=== PATIENT | male | born 1955 | race Caucasian/White ===

== ENCOUNTER 2020-07-18 13:38 | Outpatient (CLI) | payer MEDICARE, SELFPAY ==
--- NOTE | ~2020-07-18 | CT_ITS ---
EXAMINATION: CT lumbar spine wo [facility] EXAM DATE: 07/18/2020 14:07 INDICATION: Low back pain. TECHNIQUE: Spiral CT of the lumbar spine was performed without contrast. Axial, coronal and sagittal images were reviewed. The dose-length product (DLP) for this examination was 858.95 mGy-cm. The e xposure was tailored according to patient size (auto mA exposure control), and iterative reconstructi on (ASIR) was used as additional dose reduction technique. Correlation is made to lumbar spine MRI ex amination 06/05/2014. FINDINGS: There is 2-3 mm retrolisthesis L3 on L4. The vertebral bodies are otherwise aligned. Modera te disc disease L2-S1, mild to moderate at L1-2. Mild lumbar dextroscoliosis. Vertebral body heights relatively well-maintained. Moderate-sized Schmorl's node superior endplate of L5. Mild to moderate s igmoid diverticulosis. Paraspinal soft tissue is unremarkable. Level by level evaluation: T12-L1: Disc does not extend beyond the endplate margin. Facet arthropathy: None. Neural foraminal stenosis: No stenosis. Central canal stenosis: No stenosis. L1-L2: There is a mild diffuse disc bulge. Facet arthropathy: None. Neural foraminal stenosis: No stenosis. Central canal stenosis: No stenosis. L2-L3: There is a mild to moderate diffuse disc bulge. Facet arthropathy: Mild. Neural foraminal stenosis: Mild to moderate left. Central canal stenosis: Mild. L3-L4: There is a moderate diffuse disc bulge. Facet arthropathy: Moderate. Neural foraminal stenosis: Mild to moderate left. Central canal stenosis: Moderate. L4-L5: There is a mild to moderate diffuse disc bulge. Facet arthropathy: Moderate. Neural foraminal stenosis: Mild to moderate bilateral. Central canal stenosis: Mild to moderate. L5-S1: There is a mild diffuse disc bulge. Facet arthropathy: Moderate. Neural foraminal stenosis: Moderate right, mild to moderate left. Central canal stenosis: Mild. Spondylosis has progressed compared to 2014 MRI examination. IMPRESSION: Overall moderate lumbar spondylosis. Reviewed, dictated and finalized at location A.
--- NOTE | ~2020-07-18 | CT_ITS ---
EXAMINATION: CT cervical spine [facility] EXAM DATE: 07/18/2020 14:06 INDICATION: Chronic low back pain, cervical radiculopathy. Cervical fusion. Left-sided neck pain. TECHNIQUE: Spiral CT of the cervical spine was performed without contrast. Axial images were reviewe d. Coronal and sagittal reformatted images were also reviewed. The dose-length product (DLP) for thi s examination was 270.44 mGy-cm. The exposure was tailored according to patient size (auto mA exposu re control), and iterative reconstruction (ASIR) was used as additional dose reduction technique. Th ere is no prior study for comparison. FINDINGS: There are facet cerclage wires, posterior fusion C4-C6. C3 also has solid bone bridging of the vertebral body and facet joints. There is mild disc disease at C2-3 and C6-7, moderate at C7-T1. The vertebral bodies are aligned in the AP dimension. There are no acute fractures identified. The o dontoid process is intact. The lateral masses of C1 line up with C2. Prevertebral soft tissue and pr e-dens space are within normal limits. Level by level evaluation: C2-C3: Disc does not extend beyond the endplate margin. Uncovertebral joint arthropathy: None. Facet joint arthropathy: Mild bilateral. Neural foraminal stenosis: No stenosis. Central canal stenosis: No stenosis. C3-C4: This level is fused. Uncovertebral joint arthropathy: Fused. Facet joint arthropathy: None. Neural foraminal stenosis: No stenosis. Central canal stenosis: No stenosis. C4-C5: This level is fused. Uncovertebral joint arthropathy: Fused. Facet joint arthropathy: Fused. Neural foraminal stenosis: No stenosis. Central canal stenosis: No stenosis. C5-C6: This level is fused. Uncovertebral joint arthropathy: Fused. Facet joint arthropathy: Fused. Neural foraminal stenosis: No stenosis. Central canal stenosis: No stenosis. C6-C7: There is a mild diffuse disc bulge. Uncovertebral joint arthropathy: Mild to moderate right, mild left. Facet joint arthropathy: Mild bilateral. Neural foraminal stenosis: Mild bilateral. Central canal stenosis: No stenosis. C7-T1: There is a mild diffuse disc bulge. Uncovertebral joint arthropathy: Moderate. Facet joint arthropathy: Mild. Neural foraminal stenosis: Mild bilateral. Central canal stenosis: No stenosis. IMPRESSION: 1. Fusion C3-C6. 2. Mild to moderate cervical spondylosis. Reviewed, dictated and finalized at location A.
== END 2020-07-18 13:39 ==
LOC: MICIMG 13:39
PROVIDERS: PCP Internal Medicine; Visit Provider Internal Medicine
DX: M47.812 Spondylosis without myelopathy or radiculopathy, cervical region (principal); G89.29 Other chronic pain; M54.5 Low back pain; M47.816 Spondylosis without myelopathy or radiculopathy, lumbar region; Z98.1 Arthrodesis status
CPT/HCPCS: 72125; 72131

== ENCOUNTER 2023-03-24 10:59 | Emergency (ER) | payer MEDICARE, SELFPAY ==
[2023-03-24 11:06] VITALS: BP 138/99; PULSE 128; RESP 16; TEMP 36.7; O2SAT 96
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
== END 2023-03-24 11:38 | disposition home or self-care (01) ==
PROVIDERS: Emergency Provider Registered Nurse; PCP Family Medicine
DX: B02.9 Zoster without complications (principal); M79.7 Fibromyalgia; K21.9 Gastro-esophageal reflux disease without esophagitis; M19.90 Unspecified osteoarthritis, unspecified site; F12.90 Cannabis use, unspecified, uncomplicated
CPT/HCPCS: 99213; G0463

== ENCOUNTER 2023-06-17 09:42 | Day surgery (SDC) | payer MEDICARE, SELFPAY ==
[2023-05-31 08:01] VITALS: BMI 26.9
[2023-06-03 10:53] VITALS: BMI 26.9
--- NOTE | 2023-06-16 11:02 | WPDANESEPPF ---
Anes - Initial Pre Proc Eval Procedure: Operation Date: 06/17/23 11:00 Proposed Procedures p Screening Colonoscopy - Bunny Gregory MD Date/Time: 06/16/23 11:02 Surgeon: Bunny Gregory MD Pre Op Diagnosis: Neoplasm Screening Patient Data Age: 67 Gender: M Height: 1.78 m Weight: 85 kg Allergies Allergy/AdvReac Type Severity Reaction Status Date / Time propoxyphene [From Darvon] Allergy Mild Rash Verified 06/17/23 10:13 Home Medications Medication Instructions Recorded Confirmed Type sildenafil 100 mg tablet 100 mg PO DAILY PRN sexual 01/14/23 06/03/23 Rx activity #30 tabs diazepam 10 mg tablet 10 mg PO TID PRN anxiety #90 tabs 03/25/23 06/17/23 Rx acetaminophen 300 mg-codeine 15 mg 1 tablet PO Q4H PRN pain #20 tabs 05/06/23 06/17/23 Rx tablet carisoprodol 350 mg tablet 350 mg PO TID PRN muscle pain #90 05/21/23 06/17/23 Rx tabs sodium,potassium,mag sulfates 17.5 See Rx Instructions PO .COMPLEX 05/31/23 06/17/23 Rx gram-3.13 gram-1.6 gram oral soln #354 mL (Suprep Bowel Prep Kit) Patient hx anesthesia problems: none Family hx anesthesia problems: none Results Review: All pre-operative results and documents have been reviewed as part of the pre-operative evaluation. [facility] Past Medical History Medical History (Updated 06/16/23 @ 11:04 by Sachin Lundberg DO) Acquired fusion of cervical spine (~1982) BMI 25.0-25.9,adult Cannabis dependence Cervicalgia Chronic, continuous use of opioids Elevated PSA Fibromyalgia GERD (gastroesophageal reflux disease) Osteoarthritis Screening for colon cancer Surgical History Surgical History History of appendectomy (~1965) History of cholecystectomy (~2015) History of vasectomy (~1993) Family History Family History Sibling Patient's sister is in good health Family history of diabetes mellitus in first degree relative Diabetes mellitus Heart disease Arthritis Mother Family history of diabetes mellitus in first degree relative Diabetes mellitus Osteoporosis Hearing loss Arthritis Father Family history of malignant neoplasm Cerebrovascular accident Melanoma eye Grandparent Diabetes mellitus Other Carcinoma of colon Family history of bipolar disorder Social History Social History Smoking status: Never smoker Alcohol intake: current Substance use: current Substance use type: marijuana Living arrangements: with family Gender identity (if verbalized by the patient): Male Spiritual care concerns: No Anes - Eval Final PreProcedure Day of Procedure 06/16/23 11:02 Patient weight: overweight Heart: regular rate and rhythm Lungs: clear to auscultation Airway: Mallampati scale class II Neurological: alert and oriented Last oral intake: >/= 8 hours ASA classification: III Emergent: no Anesthetic plan: proceed Anesthesia type and monitoring: general GIVS and standard monitoring Results Review: All pre-operative results and documents have been reviewed as part of the pre-operative evaluation. Informed Consent: The patient's anesthetic plan and its attendant risks and benefits were discussed with the patient/family/POA. Questions were solicited and answers provided to the satisfaction of the patient/family/POA.
[2023-06-17 10:10] VITALS: BP 137/94; PULSE 85; RESP 20; TEMP 37; O2SAT 99
[2023-06-17] MEDS: LACTATED RINGERS 1,000 ML 150 ML IV CONT (10:22)
--- NOTE | 2023-06-17 10:32 | PM.HPGS ---
History of Present Illness History of Present Illness Consent: Risks, benefits, and alternatives have been discussed and questions answered. Patient agrees to proceed with procedure. Chief complaint: Neoplasm Screening Narrative: Jessica Chan is a 67 year old male Presents for screening colonoscopy. Patient's current weight appetite and bowel movements are normal patient denies abdominal pain. He has had no bleeding. Family history is noncontributory. Patient has a past medical history of cervical neck fracture and subsequent spine fusion. Plans ongoing pain. Review of Systems Review of Systems: Review of systems is noncontributory. [facility] Past Medical History Medical History (Updated 06/16/23 @ 11:04 by Sachin Lundberg, ) Acquired fusion of cervical spine (~1982) BMI 25.0-25.9,adult Cannabis dependence Cervicalgia Chronic, continuous use of opioids Elevated PSA Fibromyalgia GERD (gastroesophageal reflux disease) Osteoarthritis Screening for colon cancer Surgical History Surgical History History of appendectomy (~1965) History of cholecystectomy (~2015) History of vasectomy (~1993) Family History Family History Sibling Patient's sister is in good health Family history of diabetes mellitus in first degree relative Diabetes mellitus Heart disease Arthritis Mother Family history of diabetes mellitus in first degree relative Diabetes mellitus Osteoporosis Hearing loss Arthritis Father Family history of malignant neoplasm Cerebrovascular accident Melanoma eye Grandparent Diabetes mellitus Other Carcinoma of colon Family history of bipolar disorder Social History Social History Smoking status: Never smoker Alcohol intake: current Substance use: current Substance use type: marijuana Living arrangements: with family Gender identity (if verbalized by the patient): Male Spiritual care concerns: No Meds Home Medications and Allergies Home Medications Medication Instructions Recorded Confirmed Type sildenafil 100 mg tablet 100 mg PO DAILY PRN sexual 01/14/23 06/03/23 Rx activity #30 tabs diazepam 10 mg tablet 10 mg PO TID PRN anxiety #90 tabs 03/25/23 06/17/23 Rx acetaminophen 300 mg-codeine 15 mg 1 tablet PO Q4H PRN pain #20 tabs 05/06/23 06/17/23 Rx tablet carisoprodol 350 mg tablet 350 mg PO TID PRN muscle pain #90 05/21/23 06/17/23 Rx tabs sodium,potassium,mag sulfates 17.5 See Rx Instructions PO .COMPLEX 05/31/23 06/17/23 Rx gram-3.13 gram-1.6 gram oral soln #354 mL (Suprep Bowel Prep Kit) Allergies Allergy/AdvReac Type Severity Reaction Status Date / Time propoxyphene [From Darvon] Allergy Mild Rash Verified 06/17/23 10:13 Vital Signs Vital Signs - 24 hr 06/17/23 10:10 Temperature 98.6 F Pulse Rate 85 Respiratory Rate 20 Blood Pressure 137/94 H Pulse Oximetry 99 Oxygen Delivery Room Air Exam Narrative: Physical exam reveals patient to be alert. Vital signs stable. HEENT is unremarkable. Patient is a clear to auscultation and percussion. Heart is without murmur or extra sounds. A M bowel sounds are present soft nontender with no organomegaly. Digital external rectal exam normal. Assessment and Plan Assessment and plan (1) Screening for colon cancer: Code(s): Z12.11 - Encounter for screening for malignant neoplasm of colon Status: Acute Assessment and Plan: Presents today for screening colonoscopy. He appears to be at average risk for colon polyps. Further recommendations may be given after endoscopy.
[2023-06-17 11:31] VITALS: BP 143/87; PULSE 71; RESP 16; O2SAT 96
[2023-06-17 11:41] VITALS: BP 141/98; PULSE 75; RESP 16; O2SAT 97
[2023-06-17 11:51] VITALS: BP 143/101; PULSE 66; RESP 18; O2SAT 97
--- NOTE | 2023-06-17 12:36 | WPDANESPN ---
Anes - Prog Note Post-Op Date/Time: 06/17/23 12:36 Cardiovascular status: normal Respiratory status: normal Airway patency: baseline Mental status: baseline Post-Op hydration status: normal Vital Signs: Last Vital Signs Temp 37.0 C 06/17/23 10:10 Pulse 66 06/17/23 11:51 Resp 18 06/17/23 11:51 BP 143/101 H 06/17/23 11:51 Pulse Ox 97 06/17/23 11:51 O2 Del Method Room Air 06/17/23 11:51 Pain Score (VAS): 0 I/O: Intake & Output 06/16/23 06/17/23 06/17/23 23:59 07:59 15:59 Intake Total 800 Balance 800 Post-procedural complaints: none Patient Feedback: Patient satisfied with anesthetic care. Other Findings: Patient vital signs back to baseline. Patient denies nausea and vomiting. Patient's pain under control. Patient OK for discharge.
== END 2023-06-17 12:05 | disposition home or self-care (01) ==
PROVIDERS: PCP Family Medicine; Visit Provider Internal Medicine Gastroenterology
PROC: 0DJD8ZZ Inspection of Lower Intestinal Tract, Via Natural or Artificial Opening Endoscopic (ICD-10-PCS; CPT 45378; principal; 2023-06-17 11:00)
DX: Z12.11 Encounter for screening for malignant neoplasm of colon (principal); K57.30 Diverticulosis of large intestine without perforation or abscess without bleeding
CPT/HCPCS: 45378

== ENCOUNTER 2024-10-17 08:20 | Outpatient (CLI) | payer MEDICARE, SELFPAY ==
--- NOTE | 2024-10-17 08:00 | ECG_ITS ---
Test Date: 2024-10-17 08:55:28 Measurements Intervals [place] Rate: 90 P: 65 CT: 131 QRS: 56 QRSD: 84 T: 52 QT: 338 QTc: 414 Interpretive Statements SINUS RHYTHM No previous ECG available for comparison Electronically Signed On 10-17-2024 14:56:04 [employer] by Natalie Zamarripa M.D.
== END 2024-10-17 08:21 | disposition home or self-care (01) ==
PROVIDERS: PCP Family Medicine; Visit Provider Surgery
DX: Z01.818 Encounter for other preprocedural examination (principal); K40.90 Unilateral inguinal hernia, without obstruction or gangrene, not specified as recurrent; E78.5 Hyperlipidemia, unspecified; R00.0 Tachycardia, unspecified
CPT/HCPCS: 36415; 86850; 86900; 86901; 93005

== ENCOUNTER 2024-10-24 00:27 | Day surgery (SDC) | payer MEDICARE, SELFPAY ==
[2024-10-11 15:48] VITALS: BMI 22.4
--- NOTE | 2024-10-11 16:02 | PC.NURSE ---
Report to the Outpatient Waiting Room, entrance under the green pavilion located off [facility], at time __06:00am on date 10/24/24 . Planned Procedure Time: __07:30am .? Time changes happen often and if your time is changed the preop area will call you the afternoon before. - You and your visitor will be asked to self-screen and do not enter if you have any COVID symptoms. Please call surgeon if you need to reschedule. - A mask is optional within the hospital at this time. Patients may have clear liquids (water, carbonated beverages, clear teas, apple juice) until 3 hours prior to surgery with a maximum of 20 ounces. - No food from midnight until time of surgery and no smoking. This includes no chewing gum, candy or mints.(04:30am) - Take only the following medications with a SIP of water on the morning of surgery: Tylenol w Codeine, Carisoprodole, and Diazepam as needed DO NOT STOP ANY OF YOUR OTHER PRESCRIPTION MEDICATIONS PRIOR TO SURGERY EXCEPT THE FOLLOWING Medications to discontinue per physician None Date to take last dose Please no make-up, nail estonian, hairspray, perfume, deodorant, or body powder the day of surgery.? No jewelry (including any body piercings) or valuables the day of surgery, leave them at home.? Please take a shower or bath the night before, or the morning of, surgery with an antibacterial soap.? Wear comfortable, loose fitting clothing.? - Jewelry must be removed prior to entering the operating room.? Rings and piercings that are not removed may be cut off. - The hospital will not accept responsibility for valuables.? - Please leave all valuables, including medications, at home the day of surgery. If you are going home after surgery, a licensed pedicab driver must drive you home.? - NO public transportation without another adult if you receive anesthesia. - We recommend that an adult stay with you for 24 hours following discharge. - We also recommend that you do not drive, make important decision, drink alcoholic beverages, or take any drugs that were not prescribed by your health care provider for at least 24 hours after your discharge time. Follow any additional instructions given to you from your surgeon. Telephone instructions given to _Patient and asked if any additional questions and then verbalized understanding. Patient advised to call surgeon office or pre surgery nurse liaison [phone] if any additional questions.
[2024-10-24] VITALS (10 sets, daily range): BP systolic 99–158; BP diastolic 63–98; PULSE 62–98; RESP 10–18; TEMP 36.1–36.2; O2SAT 99–100
[2024-10-24] MEDS: KETOROLAC 15 MG/ML VIAL (*BKC) IV PUSH (07:00)
[2024-10-24] MEDS: LACTATED RINGERS 1,000 ML 30 ML IV CONT ×2 (07:00→08:50)
--- NOTE | 2024-10-24 07:13 | WPDHPUPDATE1 ---
History and Physical Update Update Date/Time: 10/24/24 07:13 History and Physical has been reviewed, including an updated exam of the patient. There are NO changes in the patient's condition. Risks, benefits, and alternatives have been discussed and questions answered. Patient agrees to proceed with procedure.
--- NOTE | 2024-10-24 07:13 | PM.IMHP ---
H&P: HPI History of Present Illness Date/Time: 10/24/24 07:13 Chief Complaint: right inguinal hernia Narrative: 69 yo man presents for right inguinal hernia repair. He reports no changes since last seen in office. Review of Systems Review of Systems: All systems reviewed & are unremarkable except as noted in HPI and below Constitutional: Constitutional: Denies chills, Denies fever(s), Denies headache(s) and Denies weight loss Eyes: Eyes: Denies change in vision ENT: Denies dizziness, Denies headache(s), Denies neck mass and Denies throat swelling Cardiovascular: Cardiovascular: Denies chest pain, Denies lightheadedness and Denies dyspnea Respiratory: Respiratory: Denies cough, Denies dyspnea and Denies wheezing Gastrointestinal: Gastrointestinal: Denies abdominal pain, Denies change in bowel habits, Denies nausea and Denies vomiting Genitourinary: Genitourinary: Denies hematuria and Denies dysuria Musculoskeletal: Musculoskeletal: Reports as per HPI Integumentary/Breasts: Skin/Breast: Reports as per HPI Neurologic: Denies dizziness and Denies headache(s) Allergic/Immunologic: Allergic/Immunologic: Denies throat swelling and Denies wheezing [facility] Past Medical History Medical History (Updated 10/24/24 @ 07:15 by Vasu Underwood DO) History of radiation therapy prostate 2023 Chronic, continuous use of opioids Screening for colon cancer Acquired fusion of cervical spine (~1982) Osteoarthritis GERD (gastroesophageal reflux disease) Cervicalgia BMI 25.0-25.9,adult Cannabis dependence Elevated PSA Fibromyalgia Surgical History Surgical History History of vasectomy (~1993) History of cholecystectomy (~2015) History of appendectomy (~1965) Family History Family History Sibling Patient's sister is in good health Family history of diabetes mellitus in first degree relative Diabetes mellitus Heart disease Arthritis Mother Family history of diabetes mellitus in first degree relative Diabetes mellitus Osteoporosis Hearing loss Arthritis Father Family history of malignant neoplasm Cerebrovascular accident Melanoma eye Grandparent Diabetes mellitus Other Carcinoma of colon Family history of bipolar disorder Social History Social History Smoking status: Never smoker Alcohol intake: never Substance use: current Substance use type: marijuana Other substance usage details: smoke and edibles ,gummies Living arrangements: alone Additional living arrangements comments: Gender identity (if verbalized by the patient): Male Spiritual care concerns: No Meds Home Medications and Allergies Home Medications ?Medication ?Instructions ?Recorded ?Confirmed ?Type carisoprodol 350 mg tablet 350 mg PO TID PRN muscle pain #90 06/06/24 10/11/24 Rx tabs imipramine HCl 10 mg tablet 10 mg PO QHS #90 tabs 08/16/24 10/11/24 Rx diazepam 10 mg tablet 10 mg PO TID PRN muscle spasm #90 09/04/24 10/11/24 Rx tabs acetaminophen 300 mg-codeine 15 mg 1 tablet PO Q4H PRN pain 10/11/24 10/11/24 History tablet oxybutynin chloride 10 mg 10 mg PO BID 10/11/24 10/11/24 History tablet,extended release 24 hr relugolix 120 mg tablet (Orgovyx) 120 mg PO DAILY 10/11/24 10/11/24 History Allergies Allergy/AdvReac Type Severity Reaction Status Date / Time propoxyphene (From Darvon) Allergy Mild Rash Verified 10/11/24 15:45 propofol AdvReac Severe Headache Verified 10/11/24 15:45 morphine AdvReac Mild Nausea Verified 10/11/24 15:45 Exam Const: General: no acute distress and alert Orientation/consciousness: patient oriented x3 HENMT: Head: normocephalic and atraumatic Ears: hearing grossly normal bilaterally Face/Nose/Sinus: Normal nares present Mouth: Yes Normal oral and palatal mucosa present Eyes: Periorbital: periorbital findings normal Sclera: sclerae normal EOM: EOMs intact bilaterally Neck: Neck: normal visual inspection, no lymphadenopathy and trachea midline Chest: Chest palpation & inspection: normal inspection of the chest Resp: Effort & Inspection: normal respiratory effort Auscultation: clear to auscultation bilaterally Cardio: Jugular venous distension: no JVD Rate: regular rate Rhythm: regular rhythm Heart sounds: S1 normal heart sound present and S2 normal heart sound present Peripheral pulses: Peripheral pulses 2+ throughout GI: Inspection: normal to inspection GI Palp: Yes Soft to palpation, No Tenderness to palpation present (GI), No Guarding due to palpation present (GI) and No Rebound tenderness present Percussion: Yes normal to percussion Auscultation: normal bowel sounds : General: Yes no CVA tenderness Scrotum: inguinal hernia on the right Back/Spine/Pelvis: Back: no CVA tenderness Neuro: General: patient oriented x3, no focal motor deficits and CN's II-XI intact bilaterally Cognition (Neuro): normal cognition Speech: normal speech Motor exam (neuro): 5/5 motor strength present throughout Extrem: General: capillary refill normal and no clubbing, cyanosis or edema Assessment and Plan Assessment and plan (1) Right inguinal hernia: Code(s): K40.90 - Unilateral inguinal hernia, without obstruction or gangrene, not specified as recurrent Status: Acute Assessment and Plan: I have recommended laparoscopic right inguinal hernia repair with mesh, da Presley assisted. I have discussed the procedure, risks, benefits, and alternatives with the patient. All questions answered. No changes since last seen in office.
--- NOTE | 2024-10-24 07:23 | WPDANESEPPF ---
Anes - Initial Pre Proc Eval Procedure: Operation Date: 10/24/24 07:30 Proposed Procedures p Laparoscopic Right Inguinal Hernia Repair with Mesh, Davinci Assisted - Vasu Underwood DO Date/Time: 10/24/24 07:23 Surgeon: Vasu Underwood DO Pre Op Diagnosis: Right Inguinal Hernia Patient Data Age: 69 Gender: M Height: 1.83 m Weight: 75 kg Last Vital Signs Temp 97.1 F L 10/24/24 07:00 Pulse 98 10/24/24 07:00 Resp 14 10/24/24 07:00 BP 99/63 L 10/24/24 07:00 Pulse Ox 100 10/24/24 07:00 O2 Del Method Room Air 10/24/24 07:00 Allergies Allergy/AdvReac Type Severity Reaction Status Date / Time propoxyphene (From Darvon) Allergy Mild Rash Verified 10/11/24 15:45 propofol AdvReac Severe Headache Verified 10/11/24 15:45 morphine AdvReac Mild Nausea Verified 10/11/24 15:45 Home Medications ?Medication ?Instructions ?Recorded ?Confirmed ?Type carisoprodol 350 mg tablet 350 mg PO TID PRN muscle pain #90 06/06/24 10/11/24 Rx tabs imipramine HCl 10 mg tablet 10 mg PO QHS #90 tabs 08/16/24 10/11/24 Rx diazepam 10 mg tablet 10 mg PO TID PRN muscle spasm #90 09/04/24 10/11/24 Rx tabs acetaminophen 300 mg-codeine 15 mg 1 tablet PO Q4H PRN pain 10/11/24 10/11/24 History tablet oxybutynin chloride 10 mg 10 mg PO BID 10/11/24 10/11/24 History tablet,extended release 24 hr relugolix 120 mg tablet (Orgovyx) 120 mg PO DAILY 10/11/24 10/11/24 History Patient hx anesthesia problems: none Family hx anesthesia problems: none Results Review: All pre-operative results and documents have been reviewed as part of the pre-operative evaluation. [facility] Past Medical History Medical History (Updated 10/24/24 @ 07:15 by Vasu Underwood DO) History of radiation therapy prostate 2023 Chronic, continuous use of opioids Screening for colon cancer Acquired fusion of cervical spine (~1982) Osteoarthritis GERD (gastroesophageal reflux disease) Cervicalgia BMI 25.0-25.9,adult Cannabis dependence Elevated PSA Fibromyalgia Surgical History Surgical History History of vasectomy (~1993) History of cholecystectomy (~2015) History of appendectomy (~1965) Family History Family History Sibling Patient's sister is in good health Family history of diabetes mellitus in first degree relative Diabetes mellitus Heart disease Arthritis Mother Family history of diabetes mellitus in first degree relative Diabetes mellitus Osteoporosis Hearing loss Arthritis Father Family history of malignant neoplasm Cerebrovascular accident Melanoma eye Grandparent Diabetes mellitus Other Carcinoma of colon Family history of bipolar disorder Social History Social History Smoking status: Never smoker Alcohol intake: never Substance use: current Substance use type: marijuana Other substance usage details: smoke and edibles ,gummies Living arrangements: alone Additional living arrangements comments: Gender identity (if verbalized by the patient): Male Spiritual care concerns: No Anes - Eval Final PreProcedure Day of Procedure 10/24/24 07:23 Patient weight: normal Heart: regular rate and rhythm Lungs: clear to auscultation Airway: Mallampati scale class II Neurological: alert and oriented Last oral intake: >/= 8 hours ASA classification: III Emergent: no Anesthetic plan: proceed Anesthesia type and monitoring: general ETT and standard monitoring Results Review: All pre-operative results and documents have been reviewed as part of the pre-operative evaluation. Informed Consent: The patient's anesthetic plan and its attendant risks and benefits were discussed with the patient/family/POA. Questions were solicited and answers provided to the satisfaction of the patient/family/POA.
[2024-10-24] MEDS: ceFAZolin 2 GM/D5W 50 ML 2 GM/50 ML BAG IVPB (07:32)
[2024-10-24] MEDS: BUPIVACAINE/EPINEPHRINE 0.5% 50 ML VIAL 30 ML INFILTRATE (08:14)
--- NOTE | 2024-10-24 08:42 | W.PM.PROC2 ---
Procedure Note - Detailed Date of Procedure 10/24/24 Pre-op Diagnosis Right Inguinal Hernia Post-op Diagnosis Same (Direct [facility]) Procedure Performed Laparoscopic right inguinal hernia repair with mesh, da Presley assisted Surgeon Vasu Underwood DO Anesthesia General and Local (0.5% bupivacaine with epinephrine) Indications This is a 69-year-old man who presented with right groin pain for the past several months. He was currently undergoing radiation therapy for prostate cancer at the time when the pain started. He was found to have a reducible right inguinal hernia on exam. The patient was able to complete his radiation treatments and then further discussions were made with the patient about treatment options. Decision was made to proceed with robotic assisted laparoscopic right inguinal hernia repair with mesh. Findings Robotic assisted laparoscopic right inguinal hernia repair with mesh was performed. The patient was found to have a medium-sized direct right inguinal hernia. There was no evidence of left inguinal hernia. The patient did have some scarring from his previous open appendectomy in the right lower quadrant. A robotic transabdominal preperitoneal approach was utilized for repair. Once a wide enough preperitoneal pocket was created, I then placed a large right 3DMax mid mesh overlying the entire right myopectineal orifice. Description of Procedure Procedure as well as risks, benefits, and alternatives were discussed with the patient. Written consent was obtained and placed in chart prior to procedure. Patient was brought back to surgical suite. He was placed supine on operating table. Time-out was done to confirm patient and procedure. He was then intubated by Anesthesia Department. His abdomen was prepped and draped in sterile fashion using chlorhexidine prep. 0.5% bupivacaine with epinephrine was infiltrated at each location for incision. A 12 millimeter transverse incision was made just superior to the umbilicus using a 15 blade scalpel. Blunt dissection was carried out down to the linea alba. A vertical incision was made at the linea alba using a 15 blade scalpel. The peritoneum was then bluntly entered. A 12 millimeter trocar was inserted and carbon dioxide insufflation was used to create a pneumoperitoneum. A camera was inserted and the abdominal cavity was inspected. The patient was placed in slight Trendelenburg position. An 8 millimeter incision was made on the right lateral abdomen and an 8 millimeter trocar was inserted under direct visualization. Another 8 millimeter incision was made in the left lateral abdomen and an 8 millimeter trocar was inserted under direct visualization. The robotic arms were brought up to the patient's bedside and secured to the ports. The camera and instruments were inserted. I then moved over to the robotic console and took control of the camera and instruments. After careful inspection of the abdominal cavity, I began scoring the peritoneum along the right lower quadrant using scissors with electrocautery. The preperitoneal plane was entered and this was carefully dissected caudally along the inferior epigastric vessels. Careful dissection with scissors with electrocautery and blunt dissection was used to continue this dissection. I dissected far enough laterally to allow for mesh placement, and also dissected medially to identify the pubic arch and Yoav's ligament. The hernia sac was identified and carefully dissected posteriorly. The cord contents were also identified and the peritoneum was carefully dissected far enough posteriorly to allow for mesh placement. Once an adequate pocket was created, I then placed the mesh within the preperitoneal pocket and carefully unfolded it. The mesh was centered on the hernia defect with adequate overlap circumferentially. The inferior edge of the mesh was inspected to ensure that it was far enough away from the peritoneal edge. The mesh appeared in proper position overlying the entire myopectineal orifice. The mesh was secured using 3-0 Vicryl simple interrupted sutures in Yoav's ligament, the superior medial edge, and superior lateral edge of the mesh. The peritoneum was then closed over the mesh using a 3-0 V-lock running absorbable suture. The robotic instruments were removed. The robotic arms were disengaged from the ports and moved away from the bedside. The patient was flattened out in bed, the ports were removed under direct visualization, and the pneumoperitoneum was released. The fascia of the umbilical incision was approximated using an 0 Vicryl [id number] suture. The skin of the incisions was approximated using 4-0 Monocryl subcuticular suture, and Exofin glue was applied on top. The patient was awakened from anesthesia, extubated, and transferred to recovery. Implants Large right 3DMax mid mesh Estimated Blood Loss 5 Complications No immediate complications Condition Stable Disposition Same day [facility] Billing Surgery - Charge Forward: Surgery Billing
[2024-10-24] MEDS: oxyCODONE HCL (*CRX) 5 MG TAB IR PO (09:50)
[2024-10-24] MEDS: fentaNYL CITRATE INJ (*CRX) 100 MCG/2 ML VIAL 25 MCG IV PUSH ×4 (10:53→11:01)
== END 2024-10-24 11:28 | disposition home or self-care (01) ==
PROVIDERS: PCP Family Medicine; Visit Provider Surgery
PROC: 8E0Y4CZ Robotic Assisted Procedure of Lower Extremity, Percutaneous Endoscopic Approach (ICD-10-PCS; CPT 49650; principal; 2024-10-24 07:30)
DX: K40.90 Unilateral inguinal hernia, without obstruction or gangrene, not specified as recurrent (principal); K21.9 Gastro-esophageal reflux disease without esophagitis; F12.90 Cannabis use, unspecified, uncomplicated; M19.90 Unspecified osteoarthritis, unspecified site; Z79.891 Long term (current) use of opiate analgesic; Z98.890 Other specified postprocedural states; Z90.49 Acquired absence of other specified parts of digestive tract; Z98.1 Arthrodesis status; Z92.3 Personal history of irradiation; Z80.0 Family history of malignant neoplasm of digestive organs; Z80.8 Family history of malignant neoplasm of other organs or systems; Z82.49 Family history of ischemic heart disease and other diseases of the circulatory system
CPT/HCPCS: 49650; S2900; A9270; C1781; J0690; J1100; J1885; J2003; J2250; J2405; J2704; J3010; J7030; J7120

== ENCOUNTER 2025-01-15 11:56 | Outpatient (CLI) | payer MEDICARE, SELFPAY ==
--- NOTE | ~2025-01-15 | CT_ITS ---
EXAMINATION: CT pelvis wo con DATE: 01/15/2025 12:15 INDICATION: Right testicular pain. TECHNIQUE: Computed tomography (CT) of the pelvis was performed without intravenous contrast. Automat ed exposure control and iterative reconstruction technique were employed. The dose-length product was 518.05 mGy-cm. COMPARISON: CT abdomen and pelvis 09/13/2017 FINDINGS: There are no dilated loops of bowel. There is diverticulosis of the colon without evidence of diverticulitis. There are brachytherapy seeds in the prostate. There are changes of right inguinal hernia repair. There are no pathologically enlarged lymph nodes. There is no ascites. There is sever e lumbar spondylosis. IMPRESSION: 1. No specific etiology for the patient's symptoms. Reviewed, dictated and finalized at location B.
== END 2025-01-15 11:57 | disposition home or self-care (01) ==
LOC: MICIMG 11:57
PROVIDERS: PCP Family Medicine; Visit Provider Surgery
DX: N50.811 Right testicular pain (principal); N50.812 Left testicular pain
CPT/HCPCS: 72192

== ENCOUNTER 2025-07-25 12:20 | Outpatient (CLI) | payer MEDICARE, SELFPAY ==
--- OUTSIDE RECORDS SUMMARY | 2013-01-03 03:30 | XMS_ITS | Continuity of Care Document ---
Author Organization [facility] Address [address] [place] [address] [place] [address] Phone Care Team Providers Care Pulp Grinder And Blender Name Role Phone Dennis Ivan MD Unavailable [...] Diagnoses Date Provider Providers Copied on Encounter [facility], [address] [place] [address] [address], [place], [place], [address], tel:[phone] SEC Rich AHMADI Professional No Information 3 Moncho Collins. [address], [address], [place], [place], [address], . tel:[phone] Referring Provider: Dennis Camejo, [address], [place], [address] . tel:[phone] [facility], [address], [place], [place], [address], tel:[phone] SEC [place] Professional No Information 3 Moncho Collins. [address], [address] [place], [address], [place]. tel:[phone] Family History Family Member Type Diagnosis Age At Onset Mother Problem (finding) diabetes melli tus in first degree relative Payers Payer name Insurance type Covered constitution party ID Authorkady celaya(s) AARP Medicare Complete CI [id number] Social History Type Description Quantity Date Captured [...]
--- OUTSIDE RECORDS SUMMARY | 2013-05-02 09:54 | XMS_ITS | Continuity of Care Document ---
Author Organization [facility] Address [address] [place] [address] Phone Care Team Providers Care Chief Deputy Coroner Name Role Phone Iker MORLEY, Andre Unavailable Unavailable Allergies, Adverse Reactions, Alerts Substance Reaction Status Criticality PROPOXYPHENE HCL Active No Informat ion Medications Medication Instructions Dosage Effective Dates (start - stop) Status Comments Flonase 50 mcg/actuation Nasal [place] inhale 2 spray (100MCG) by intranasal route every day in each nostril 100 MCG - Active Aciphex 20 mg tablet,delayed release take 1 tablet (20MG) by oral route 2 times every day swallowing whole. Do not crush, chew and/or divide. 20 MG - Active Procedures Procedure Date OFFICE/OUTPATIENT VISIT, EST OFFICE/OUTPATIENT VISIT, EST OFFICE/OUTPATIENT VISIT, [facility] Advance Directives Directive Yes / No Effective Date File Name No Information Encounters Encounter Description Practice Location Reason(s) For Visit Diagnoses Date Provider Providers Copied on Encounter [facility] [place], [address] [place], [place], [address], tel:[phone] [facility] [place] No Information 3 Iker Powell. [address] [place], [address] , [place]. tel:[phone] Referring Provider: Andre Dong, [address], [place], [place], [address]. tel:[phone] OFFICE/OUTPA TIENT VISIT, EST [facility] [place], [address] [place], [address], [place] tel:[phone] [facility] [place] tinnitus (chief complaint) Neck pain (chief complaint) nevus (chief complaint) Dietary surveillance and counselingNevus, non-neoplasticTinni tus, unspecifiedCervical wood 3 Iker Powell. [address], [place], [place], [address] , [place]. [phone] Referring Provider: Michael [address], [place], [place], [address]. tel:[phone] OFFICE/OUTPA TIENT VISIT, [facility], [address], [place], [place], [address], [place] tel:[phone] [facility] [place] tinnitus (chief complaint) HLP (chief complaint) vitamin D (chief complaint) Other and unspecified hyperlipidemiaDieta ry surveillance and counselingTinnitus, unspecifiedUnspecif ied vitamin d deficiencyNevus, non-neoplastic 3 Iker Powell. [address], [place], [place], [address] , [place]. [phone] Referring Provider: Michael [address], [place], [place], [address]. tel:[phone] OFFICE/OUTPA TIENT VISIT, [facility], [address], [place], [place], [address], [place] tel:[phone] [facility] [place] neck pain (chief complaint) GERD (chief complaint) bells palsy (chief complaint) Dietary surveillance and counselingBell's palsyGERDCHRONIC PAIN NEC 3 Iker Powell. [address], [place], [place], [address] , [place]. tel:[phone] Referring Provider: Michael [address], [place], [place], [address]. tel:[phone] Family History Family Member Type Diagnosis Age At Onset Mother Problem (finding) Diabetes mellitus Brother Problem (finding) Diabetes mellitus Father Problem (finding) Stroke Father Problem (finding) Cancer - esophageal CA Payers Payer name Insurance type Covered alliance party ID Authoriza tion(s) No Information Social History Type Description Quantity Date Captured Comments Sex Male Smoking Status No Information Chief Complaint And Reason For Visit No Information Plan Of Treatment Date Type Action Status Referral Ordered: Referral: Plastic Surg. Evaluate and treat. ordered Referral Ordered: HEARING TEST, PURE TONE, AIR ordered History Of Present Illness Encounter Date Complaint History Of Prese nt Illness No Information Instructions Date Instruction Additional Infor birdie Dietary counseling Related to Di etary surveillance counseling Decrease caloric intake Related to Dietary surveillance counseling Dietary counseling Related to Di etary surveillance counseling Decrease caloric intake Related to Dietary surveillance counseling Decrease caloric intake Related to Dietary surveillance counseling Dietary counseling Related to Di etary surveillance counseling Assessments Type Assessment Date No Information
--- NOTE | ~2025-07-25 | XR_ITS ---
Abdominal radiograph(s) INDICATION: Hematuria COMPARISON: CT abdomen and pelvis 09/13/2017 TECHNIQUE: Supine AP abdomen FINDINGS: Scattered colonic gas and stool. Small bowel loops not well seen. Cholecystectomy clips. Pelvic phleboliths. A few tiny metallic foreign bodies in pelvis, likely within prostate. No nephroureteral calculi identified. No acute bony abnormality. IMPRESSION: 1. No nephroureteral calculi identified. Reviewed, dictated and finalized at location R.
--- OUTSIDE RECORDS SUMMARY | 2025-07-25 12:33 | XMS_ITS | Clinical Summary ---
Author Organization [facility] Address [address] [place] [address] Care Team Providers Care Armor Senior Sergeant Name Role Phone Stephan Subramanian MD Primary Care Provider [phone] Source Comments [facility],non-owned Affiliates and Associated Physician Practices is amultiple site organization consisting of ambulatory clinics and hospital sitesin [place], [place], [place] and [place]. This disclosure is being madepursuant to the Care Everywhere program and may not contain all information available regarding this patient. Last updated 18.[facility] Allergies Active Allergy Reactions Criticality Noted Date Comments Propoxyphene Rash Medium 04/07/2017 Medications * Be aware that medications may not be up to date on this document. Alwaysverify current medications with the patient. Dronabinol (MEDICAL MARIJUANA) Active MORPHINE SULFATE ER PO Active Hydrocodone-Alexis taminophen (VICODIN PO) Active DIAZEPAM PO Active diphenhydramine 12.5mg/ml, 30ml,; visc lidocaine 2%, 30ml,; maalox, 30ml, (MIRACLE MOUTHWASH) SUSPIndications :Acute pharyngitis, unspecified etiology 1:1:1 solution of viscous lidocaine 2%, Maalox, diphenhydramine 12.5mg/5ml elixir 90 mL 04/07/20 17 Active Social History Tobacco Use Types Packs/Day Years Used Date Smoking Tobacco: Never Sex and Gender Information Value Date Recorded Sex Assigned at Not on file Legal Sex Male 6:41 PM CDT Gender Identity Not on file Sexual Orientation Not on file Last Filed Vital Signs Vital Sign Reading Time Taken Comments Blood Pressure 118/72 04/07/2017 6:46 PM CDT Pulse 72 04/07/2017 6:46 PM CDT Temperature 37.1 C (98.7 F) 04/07/2017 6:46 PM CDT Respiratory Rate 16 04/07/2017 6:46 PM CDT Oxygen Saturation 97% 04/07/2017 6:46 PM CDT Inhaled Oxygen Concentration - - Weight 98 kg (216 lb) 04/07/2017 6:46 PM CDT Height 177.8 cm (5' 10) 04/07/2017 6:46 PM CDT Body Mass Index 30.99 04/07/2017 6:46 PM CDT Plan of Treatment Health Maintenance Due Date Last Done Comments COLOGUARD (AGES 45-75) - COL ON CA SCREENING 1956 COLON MONITORING 1956 COLONOSCOPY - COLON CA SCREENING 1956 CT COLONOGRAPHY - COLON CA SCREENING 1956 Colorectal Cancer Screening 1956 FIT - COLON CA SCREENING 1956 FLEX SIG - COLON CA SCREENING 1956 LIPID TESTING 1956 HEPATITIS C SCREENING 06/25/1974 DTAP/TDAP/TD VACCINES (1 - Tdap) 1975 PNEUMOCOCCAL VACCINE 50+ (1 of 1 - PCV) 2006 ZOSTER VACCINE (1 of 2) 2006 DEPRESSION SCREENING 11/08/2024 COVID-19 VACCINE (1 - 2023-2 5 season) 2025 INFLUENZA VACCINE (#1) 2025 Respiratory Syncytial Virus (RSV) Vaccine Pt: or over 60 yrs (1 - 1-dose 75+ series) 2031 HEPATITIS B VACCINE Aged Out No longe r eligible based on patient's age to complete this topic HIB VACCINE Aged Out No longer eligi ble based on patient's age to complete this topic HPV VACCINE Aged Out No longer eligi ble based on patient's age to complete this topic MENINGOCOCCAL (Group B) VACC INE SHARED DECISION-MAKING Aged Out No longer eligibl e based on patient's age to complete this topic MENINGOCOCCAL GROUPS A/C/Y/W VACCINE Aged Out No longer eligible b ased on patient's age to complete this topic Insurance [facility] [place] [address] Care Teams Armor Senior Sergeant Relationship Specialty Start Date End Date Stephan Subramanian MD [address] [facility] [address] [place] [address] PCP - General Internal Medicine 04/07/17
== END 2025-07-25 12:21 | disposition home or self-care (01) ==
PROVIDERS: PCP Family Medicine; Visit Provider Urology
DX: R31.0 Gross hematuria (principal)
CPT/HCPCS: 74018

== ENCOUNTER 2025-09-07 14:38 | Outpatient (CLI) | payer MEDICARE, SELFPAY ==
--- NOTE | ~2025-09-07 | XR_ITS ---
EXAMINATION: XR knee LT 3V, 09/07/2025 15:00 CDT HISTORY: Pain in left knee x 1 year COMPARISON: No comparisons available. Findings: No acute fracture or malalignment. No significant degenerative changes. Soft tissues unremarkable. Impression: No acute fracture or malalignment. Reviewed, dictated and finalized at location P. Impression: No acute fracture or malalignment.
== END 2025-09-07 14:39 | disposition home or self-care (01) ==
LOC: GOSHIMG 14:40
PROVIDERS: PCP Family Medicine; Visit Provider Nurse Practitioner Family
DX: M25.562 Pain in left knee (principal)
CPT/HCPCS: 73562

== ENCOUNTER 2025-09-18 09:40 | Observation (INO) | payer MEDICARE, SELFPAY ==
--- OUTSIDE RECORDS SUMMARY | 2013-01-03 02:30 | XMS_ITS | Continuity of Care Document ---
Author Organization [facility] Address [address] [place] [address] [place] [address] Phone Care Team Providers Care Application Infrastructure Engineer Name Role Phone Dennis Ivan MD Unavailable Unavailable Allergies, Adverse Reactions, Alerts Substance Reaction Status Criticality PROPOXYPHENE HCL Active No Informat ion Medications Medication Instructions Dosage Effective Dates (start - stop) Status Comments Oxycodone 20 mg Tab - Active Hydrocodone-Acetaminophen 10 mg-325 mg Tab - Active Diclofenac 75 mg Tab, Delayed Release - Active Cyclobenzaprine 10 mg Tab - Acti ve Diazepam 10 mg Tab - Active Gabapentin 600 mg Tab - Active Aciphex 20 mg Tab - Active Ranitidine 150 mg Cap - Active Procedures Procedure Date Eye Exam, New Patient Advance Directives Directive Yes / No Effective Date File Name Resuscitation Not Answered N/A N/A Life Support Not Answered N/A N/A Intubation Not Answered N/A N/A Antibiotics Not Answered N/A N/A IV Fluid Support Not Answered N/A N/A Tube Feed Not Answered N/A N/A Other Directive N/A N/A WARNING:The information contained in this section is historical and is provided for information only and does not constitute a legal document or any assurance that the information is still accurate. Please verify the information with the long of the legal document before using it for clinical purposes. Encounters Encounter Description Practice Location Reason(s) For Visit Diagnoses Date Provider Providers Copied on Encounter [facility], [address] [place] [address] [address], [place], [place], [id number], tel:[phone] SEC Rich AHMADI Professional No Information 3 Moncho Collins. [address], [address], [place], [place], [address], . tel:[phone] Referring Provider: Dennis Camejo, [address], [place], [address] . tel:[phone] [facility], [address], [place], [place], [address], tel:[phone] SEC [place] Professional No Information 3 Moncho Collins. [address], [address] [place], [place], [address], [place]. tel:[phone] Family History Family Member Type Diagnosis Age At Onset Mother Problem (finding) diabetes melli tus in first degree relative Payers Payer name Insurance type Covered republican ID Authorkady celaya(s) AARP Medicare Complete CI [id number] Social History Type Description Quantity Date Captured Comments Alcohol Use Details No Caffeine Use Details 1 cup per day Tobacco Use Status No Information Smoking Status No Information Sex Male Chief Complaint And Reason For Visit No Information Reason For Referral Reason For Referral No Information History Of Present Illness Encounter Date Complaint History Of Prese nt Illness No Information Functional Status Date Functional Assessmen t No Information Instructions Date Instruction Additional Infor mation hyperope/presbyope - glasses MGD - P Assessments Type Assessment Date No Information Patient Care Teams Name Effective Dates (start - stop) Status Members No Information
--- OUTSIDE RECORDS SUMMARY | 2013-01-03 02:30 | XMS_ITS | Continuity of Care Document ---
Author Organization [facility] Address [address] [place] [address] [place] [address] Phone Care Team Providers Care Garnett Feeder Name Role Phone Dennis Ivan MD Unavailable [...] Diagnoses Date Provider Providers Copied on Encounter [facility], [address] [place] [address] [address], [place], [place], [address], tel:[phone] SEC Rich AHMADI Professional No Information 3 Moncho Collins. [address], [address], [place], [place], [address], . tel:[phone] Referring Provider: Dennis Camejo, [address], [place], [address] . tel:[phone] [facility], [address], [place], [place], [address], tel:[phone] SEC [place] Professional No Information 3 Moncho Collins. [address], [place], [address], [place]. tel:[phone] Family History Family Member Type Diagnosis Age At Onset Mother Problem (finding) diabetes melli tus in first degree relative Payers Payer name Insurance type Covered green party ID Authorkady celaya(s) AARP Medicare Complete CI [id number] Social History Type Description Quantity Date Captured [...]
[2025-09-18] VITALS (8 sets, daily range): BP systolic 138–155; BP diastolic 73–104; PULSE 74–95; RESP 16–22; TEMP 36.4–36.6; O2SAT 95–100; BMI 20.9
--- NOTE | ~2025-09-18 | CT_ITS ---
CT HEAD NON-CONTRAST Clinical History: acute cognitive decline Comparison: None Technique: Unenhanced axial images skull base to vertex Coronal, sagittal reformats CT images acquired with automatic exposure control for dose reduction DLP: 605.33 mGy-cm Findings: Mild age-related atrophy and chronic white matter microvascular ischemic changes. Sulci, ventricles: Unremarkable. No intracerebral hemorrhage. No evidence acute territorial infarct. No mass effect, midline shift. Bony calvarium intact. Visualized paranasal sinuses: Clear. Mastoid air cells: Clear. IMPRESSION: 1. No acute intracranial findings. Reviewed, dictated and finalized at location R. SCRIPT DEVELOPER
--- NOTE | ~2025-09-18 | CT_ITS ---
CTA chest PE protocol HISTORY:chest pain . COMPARISON: None. TECHNIQUE: Following the noncontrasted social worker palliative care, axial images of the thorax were obtained following infusion of 100 cc of Isovue 370. Post-processing on an independent workstation was performed to reconstruct MIP images for evaluation of the thoracic vasculature. FINDINGS: There is no pulmonary embolism, aortic dissection, thoracic aneurysm or pericardial fluid. 5.6 mm intrafissural nodule within the right middle lobe measured on axial image 84. Left lower lobe pulmonary nodule measures 3.9 mm on axial image 100. There are no focal consolidation, pleural effusions or pneumothorax. No pleural effusion or pneumothorax is noted. There is no axillary, mediastinal or hilar adenopathy. Limited evaluation of the upper abdomen demonstrates no gross abnormalities. Review of bone windows demonstrates no osteoblastic or lytic lesions. IMPRESSION: There is no pulmonary embolism, aortic dissection, pericardial fluid or thoracic aneurysm. No acute lung findings. 5.6 mm nodule within the right middle lobe. There is a 3.9 mm nodule within the left lower lobe. All CT scans at this facility are performed using low dose modulation techniques as appropriate to perform exam including the following: automated exposure control; use of iterative reconstruction technique; adjustment of the mA and/or kV according to patient size (this includes techniques or standardized protocols for targeted exams where dose is matched to indication/reason for exam). Reviewed, dictated and finalized at location S. UET COORDINATOR IMPRESSION: There is no pulmonary embolism, aortic dissection, pericardial fluid or thoraci c aneurysm. No acute lung findings. 5.6 mm nodule within the right middle lobe. There is a 3.9 mm nodule within the left lower lobe. All CT scans at this facility are performed using low dose modulation techniqu es as appropriate to perform exam including the following: automated exposure c ontrol; use of iterative reconstruction technique; adjustment of the mA and/or kV according to patient size (this includes techniques or standardized protocol s for targeted exams where dose is matched to indication/reason for exam).
--- NOTE | ~2025-09-18 | XR_ITS ---
EXAMINATION: XR chest 2V DATE: 09/18/2025 10:41 INDICATION: Chest pressure TECHNIQUE: Frontal and lateral views of the chest were obtained. COMPARISON: None. FINDINGS: The lungs are clear. Heart size normal. The bones appear intact. Cerclage wire partially visualized in the lower cervical spine. No pneumothorax or subphrenic free air seen. IMPRESSION: 2 view chest x-ray within normal limits. Reviewed, dictated and finalized at location A. H LOADER AND HANDLE ATTACHER
--- NOTE | 2025-09-18 09:45 | ECG_ITS ---
Test Date: 2025-09-18 09:51:35 Measurements Intervals [place] Rate: 86 P: 51 OK: 132 QRS: 19 QRSD: 87 T: 22 QT: 344 QTc: 412 Interpretive Statements SINUS RHYTHM Compared to ECG 10/17/2024 08:55:28 No significant changes Electronically Signed On 09-18-2025 18:05:24 [employer]ARMWORK[employer]GET[employer] by Alejandra Hale M.D.
--- OUTSIDE RECORDS SUMMARY | 2025-09-18 10:02 | XMS_ITS | Clinical Summary ---
Author Organization [facility] Address [address] [place] [address] Care Team Providers Care Ash Pit Worker Name Role Phone Stephan Subramanian MD Primary Care Provider [phone] Source Comments [facility],non-owned Affiliates and Associated Physician Practices is amultiple site organization consisting of ambulatory clinics and hospital sitesin [place], [place], [place] and [place]. This disclosure is being madepursuant to the Care Everywhere program and may not contain all information available regarding this patient. Last updated 18.[facility] Allergies Active Allergy Reactions Criticality Noted Date [...] patient's age to complete this topic Insurance [facility] MANAGED MEDICARE ADV Care Teams Ash Pit Worker Relationship Specialty Start Date End Date Stephan Subramanian MD [address] [facility] [address] [place] [address] PCP - General Internal Medicine 04/07/17
[2025-09-18 10:14] LABS: Hematocrit 40.5 % (42.0-52.0); Hemoglobin 13.6 g/dL (14.0-18.0); Immature Granulocyte Percent A 0.2 % (0-0.5); Lymphocytes Absolute Auto 1.21 K/mm3 (0.9-3.2); Mean Corpuscular HGB Conc 33.6 g/dl (32-36); Mean Corpuscular Hemoglobin 29.9 pg (26-34); Mean Corpuscular Volume 89.0 fl (80-100); Nucleated Red Blood Cells Absolute Auto 0.000 K/mm3 (0.0-0.012); Nucleated Red Blood Cells Perc 0.0 % (0.0-0.2); Platelet Count Result 254 k/mm3 (150-375); Red Blood Count 4.55 M/mm3 (4.6-6.20); White Blood Count 4.6 K/mm3 (4.5-10.0)
[2025-09-18] MEDS: ASPIRIN 81 MG CHEWABLE TABLET 324 MG PO (10:21)
[2025-09-18 10:29] LABS: Alanine Aminotransferase 21 U/L (6-50); Albumin Level 4.5 g/dL (3.5-5.1); Alkaline Phosphatase 87 U/L (38-126); Anion Gap 12 mmol/L (4-12); Aspartate Amino Transferase 22 U/L (17-59); Bilirubin,Total 0.9 mg/dL (0.2-1.3); Blood Urea Nitrogen 19 mg/dL (9-20); Calcium 10.2 mg/dL (8.4-10.2); Carbon Dioxide 25 mmol/L (22-30); Chloride 103 mmol/L (98-107); Estimated CRCL calculation 70 ml/min; Estimated Glomerular Filt Rate > 60; Glucose 110 mg/dL (65-110); Lipase 75 U/L (23-300); Potassium 3.8 mmol/L (3.4-5.0); Sodium 140 mmol/L (137-145); Total Protein 7.6 g/dL (6.3-8.2)
[2025-09-18 10:32] LABS: INR 1.0; Prothrombin Time 13.5 Seconds (11.1-14.7)
[2025-09-18 10:33] LABS: Partial Thromboplastin Time 32.6 Seconds (22.3-36.8)
--- NOTE | 2025-09-18 10:33 | ED.CHESTPAIN ---
HPI - Chest Pain General Chief Complaint: Chest Pain <RUSSELL Hinton - Last Filed: 09/18/25 16:07> Stated Complaint: chest pressure, LUE numbness - since last noc <RUSSELL Hinton - Last Filed: 09/18/25 16:07> Time Seen by Provider: 09/18/25 09:55 <RUSSELL Hinton - Last Filed: 09/18/25 16:07> History of Present Illness HPI narrative: 70-year-old male presenting with complaints of chest pain that started last night. Patient reports the pain woke him up throughout the night and it continued into this morning. He describes the chest pain as left-sided with radiation down his left arm and describes it as painful pressure.He was not doing anything when the chest pain started. He endorses subjective increase in shakiness, slight shortness of breath, and an increase in leg swelling the last couple days. Patient's reports a decline in his mental clarity the last few months and even more so within the last week or two. He denies fevers/chills, recent illness, loss of consciousness, or trauma. <RUSSELL Hinton - Last Filed: 09/18/25 16:07> Related Data Home Medications: Home Medications ?Medication ?Instructions ?Recorded ?Confirmed ?Last Taken ?Type diazepam 10 mg tablet 10 mg PO TID muscle spasm 09/18/25 09/18/25 09/18/25 History ibuprofen 800 mg tablet 800 mg PO TID PRN pain 09/18/25 09/18/25 Unknown History <RUSSELL Hinton - Last Filed: 09/18/25 16:07> Allergies/Adverse Reactions: Allergies Allergy/AdvReac Type Severity Reaction Status Date / Time propoxyphene (From Darvon) Allergy Mild Rash Verified 09/18/25 16:24 propofol AdvReac Severe Headache Verified 09/18/25 16:24 morphine AdvReac Mild Nausea Verified 09/18/25 16:24 <RUSSELL Hinton - Last Filed: 09/18/25 16:07> Review of Systems Review of Systems: All systems reviewed & are unremarkable except as noted in HPI and below <RUSSELL Hinton - Last Filed: 09/18/25 16:07> [facility] Past Medical History Medical History: Medical History History of radiation therapy prostate 2023 Chronic, continuous use of opioids Screening for colon cancer Acquired fusion of cervical spine (~1982) Osteoarthritis GERD (gastroesophageal reflux disease) Cervicalgia BMI 25.0-25.9,adult Cannabis dependence Fibromyalgia <RUSSELL Hinton - Last Filed: 09/18/25 16:07> Surgical History Surgical History: Surgical History History of inguinal herniorrhaphy 10/24/24 Laparoscopic right inguinal hernia repair with mesh, da Presley assisted Dr. Underwood History of vasectomy (~1993) History of cholecystectomy (~2015) History of appendectomy (~1965) <RUSSELL Hinton - Last Filed: 09/18/25 16:07> Family History Family History: Family History Sibling Patient's sister is in good health Family history of diabetes mellitus in first degree relative Diabetes mellitus Heart disease Arthritis Mother Family history of diabetes mellitus in first degree relative Diabetes mellitus Osteoporosis Hearing loss Arthritis Father Family history of malignant neoplasm Cerebrovascular accident Melanoma eye Grandparent Diabetes mellitus Other Carcinoma of colon Family history of bipolar disorder <RUSSELL Hinton - Last Filed: 09/18/25 16:07> Social History Social History: Social History Smoking status: Smoker, status unknown Tobacco type: pipe Second hand tobacco smoke exposure: Yes Additional smoking assessment comments: cannabis Alcohol intake: former Substance use: current Substance use type: marijuana Other substance usage details: smoke and edibles ,gummies Lack of Transportation: No Lack of Food: Never True Current Housing: I Have Housing Concerned About Future Housing: No Difficulty Paying Gas/Electric Bills: No Difficulty Paying for Meds: No Currently Unemployed: No Education: High School Diploma/GED Difficulty w/ Childcare or Family Care: No Living arrangements: alone Additional living arrangements comments: Gender identity (if verbalized by the patient): Male Spiritual care concerns: No <RUSSELL Hinton - Last Filed: 09/18/25 16:07> Exam Narrative: GENERAL: Flat affect, well-nourished, and in no acute distress. HEAD: Normocephalic, atraumatic. EYES: PERRLA and EOMI. ENT: Nares clear, no rhinorrhea or epistaxis. Mucous membranes moist. Oropharynx without tonsillar hypertrophy exudate or other lesions. Bilateral TMs pearly jones non-bulging NECK: Supple. No adenopathy or masses. No carotid bruits or JVD CHEST: Clear to auscultation. No respiratory distress. No wheezes rales or rhonchi HEART: Regular rate and rhythm. No murmur heard. Normal peripheral pulses. ABDOMEN: Soft, nontender, nondistended, normal active bowel sounds. EXTREMITIES: Normal range of motion. No edema. SKIN: Warm, dry, no rash. NEURO: No focal deficits. Alert and oriented x3. Soft-spoken, slowed speech PSYCH: Normal mood and flat affect <RUSSELL Hinton - Last Filed: 09/18/25 16:07> Course EYEGLASS LENS CUTTER/PA Physician Supervision This visit was performed by both a physician and an APC. I performed all aspects of the MDM as documented. <Wang Leal MD - Last Filed: 09/18/25 20:09> Vital Signs Vital signs: Vital Signs Pulse Rate 89 09/18/25 09:54 Respiratory Rate 20 09/18/25 09:54 Blood Pressure 154/104 H 09/18/25 09:54 Pulse Oximetry 100 09/18/25 09:54 Oxygen Delivery Room Air 09/18/25 09:54 Temperature 97.8 F 09/18/25 16:00 Pulse Rate 90 09/18/25 18:00 Respiratory Rate 16 09/18/25 16:00 Blood Pressure 155/91 H 09/18/25 16:00 Pulse Oximetry 100 09/18/25 16:00 Oxygen Delivery Room Air 09/18/25 09:57 <RUSSELL Hinton - Last Filed: 09/18/25 16:07> Vital Signs Pulse Rate 89 09/18/25 09:54 Respiratory Rate 20 09/18/25 09:54 Blood Pressure 154/104 H 09/18/25 09:54 Pulse Oximetry 100 09/18/25 09:54 Oxygen Delivery Room Air 09/18/25 09:54 Temperature 97.8 F 09/18/25 16:00 Pulse Rate 90 09/18/25 18:00 Respiratory Rate 16 09/18/25 16:00 Blood Pressure 155/91 H 09/18/25 16:00 Pulse Oximetry 100 09/18/25 16:00 Oxygen Delivery Room Air 09/18/25 09:57 <Wang Leal MD - Last Filed: 09/18/25 20:09> MDM - Chest Pain MDM Narrative Medical decision making narrative: 70-year-old male presenting with complaints of chest pain that started last night. Patient reports the pain woke him up throughout the night and it continued into this morning. He describes the chest pain as left-sided with radiation down his left arm and describes it as painful pressure.He was not doing anything when the chest pain started. He endorses subjective increase in shakiness, slight shortness of breath, and an increase in leg swelling the last couple days. Patient's reports a decline in his mental clarity the last few months and even more so within the last week or two. He denies fevers/chills, recent illness, abdominal pain, loss of consciousness, or trauma. Patient's labs are without significant high risk changes. EKG demonstrated mild ST depression in lateral leads with improvement following second troponin. Troponin negative. Cardiac risk factors reviewed. HEART score = 3-4 and patient maintains significant left sided cp with radiation down his arm. Only felt momentary relief with aspirin. Uncomfortable with discharge home with these symptoms. Spoke to Bruce Fan EYEGLASS LENS CUTTER with hospitalist and in agreement for admission for continued observation and to be seen by Cardiology. Nelda Vincent EYEGLASS LENS CUTTER with Cardiology given report and is aware of patient disposition. No signs or symptoms and negative imaging for aortic dissection. Dimer positive and subsequent CTA negative for PE rule out. No pneumonia seen on evaluation today. CT brain obtained for 's subjective mental status changes within the last week. CT showed no acute abnormalities. Patient admitted for further observation and care. <RUSSELL Hinton - Last Filed: 09/18/25 16:07> 70-year-old male presenting with complaints of chest pain that started last night. Patient reports the pain woke him up throughout the night and it continued into this morning. He describes the chest pain as left-sided with radiation down his left arm and describes it as painful pressure.He was not doing anything when the chest pain started. He endorses subjective increase in shakiness, slight shortness of breath, and an increase in leg swelling the last couple days. Patient's reports a decline in his mental clarity the last few months and even more so within the last week or two. He denies fevers/chills, recent illness, abdominal pain, loss of consciousness, or trauma. Patient's labs are without significant high risk changes. EKG demonstrated mild ST depression in lateral leads with improvement following second troponin. Troponin negative. Cardiac risk factors reviewed. HEART score = 3-4 and patient maintains significant left sided cp with radiation down his arm. Only felt momentary relief with aspirin. Uncomfortable with discharge home with these symptoms. Spoke to Bruce Fan EYEGLASS LENS CUTTER with hospitalist and in agreement for admission for continued observation and to be seen by Cardiology. Nelda Vincent EYEGLASS LENS CUTTER with Cardiology given report and is aware of patient disposition. No signs or symptoms and negative imaging for aortic dissection. Dimer positive and subsequent CTA negative for PE rule out. No pneumonia seen on evaluation today. CT brain obtained for 's subjective mental status changes within the last week. CT showed no acute abnormalities. Patient admitted for further observation and care. This visit was performed by both a physician and an APC. I performed all aspects of the MDM as documented. <Wang Leal MD - Last Filed: 09/18/25 20:09> Medical Records Data Attestation: I reviewed the patient's medical records. <RUSSELL Hinton - Last Filed: 09/18/25 16:07> Lab Data Attestation: I reviewed the patient's lab results. <RUSSELL Hinton - Last Filed: 09/18/25 16:07> Result diagrams: 09/18/25 10:07 09/18/25 10:07 <RUSSELL Hinton - Last Filed: 09/18/25 16:07> Labs: Lab Results 09/18/25 09/18/25 Range/Units 10:07 12:21 WBC 4.6 (4.5-10.0) K/mm3 RBC 4.55 L (4.6-6.20) M/mm3 Hgb 13.6 L (14.0-18.0) g/dL Hct 40.5 L (42.0-52.0) % MCV 89.0 (80-100) fl MCH 29.9 (26-34) pg MCHC 33.6 (32-36) g/dl RDW 13.1 (11.5-14.5) % Plt Count 254 (150-375) k/mm3 MPV 8.9 (7.4-10.4) fl Immature Gran % (Auto) 0.2 (0-0.5) % Neut % (Auto) 56.6 (45.5-73.1) % Lymph % (Auto) 26.1 (18.3-44.2) % [place] % (Auto) 13.6 H (2.6-8.5) % Eos % (Auto) 2.4 (0-4.4) % Baso % (Auto) 1.1 (0.2-1.2) % Lymph # (Auto) 1.21 (0.9-3.2) K/mm3 [place] # (Auto) 0.6 (0.1-0.6) K/mm3 Eos # (Auto) 0.1 (0-0.3) K/mm3 Baso # (Auto) 0.1 (0.0-0.1) K/mm3 Abs Immat Gran (auto) 0.01 (0.00-0.031) K/mm3 Absolute Neuts (auto) 2.6 (1.3-6.7) K/mm3 Absolute Nucleated RBC 0.000 (0.0-0.012) K/mm3 Nucleated RBC % 0.0 (0.0-0.2) % PT 13.5 (11.1-14.7) Seconds INR 1.0 APTT 32.6 (22.3-36.8) Seconds D-Dimer 1.47 H (<0.48) ug/mL Sodium 140 (137-145) mmol/L Potassium 3.8 (3.4-5.0) mmol/L Chloride 103 (98-107) mmol/L Carbon Dioxide 25 (22-30) mmol/L Anion Gap 12 (4-12) mmol/L BUN 19 (9-20) mg/dL Creatinine 0.90 (0.7-1.3) mg/dL Estim Creat Clear Calc 70 ml/min Estimated GFR > 60 (59 - ) Glucose 110 (65-110) mg/dL Calcium 10.2 (8.4-10.2) mg/dL Total Bilirubin 0.9 (0.2-1.3) mg/dL AST 22 (17-59) U/L ALT 21 (6-50) U/L Alkaline Phosphatase 87 (38-126) U/L Troponin I < 0.012 < 0.012 (0.000-0.034) ng/mL NT-Pro-B Natriuret Pep 39 (19.9-100) pg/mL Total Protein 7.6 (6.3-8.2) g/dL Albumin 4.5 (3.5-5.1) g/dL Lipase 75 (23-300) U/L <RUSSELL Hinton - Last Filed: 09/18/25 16:07> Lab Results 09/18/25 09/18/25 Range/Units 10:07 12:21 WBC 4.6 (4.5-10.0) K/mm3 RBC 4.55 L (4.6-6.20) M/mm3 Hgb 13.6 L (14.0-18.0) g/dL Hct 40.5 L (42.0-52.0) % MCV 89.0 (80-100) fl MCH 29.9 (26-34) pg MCHC 33.6 (32-36) g/dl RDW 13.1 (11.5-14.5) % Plt Count 254 (150-375) k/mm3 MPV 8.9 (7.4-10.4) fl Immature Gran % (Auto) 0.2 (0-0.5) % Neut % (Auto) 56.6 (45.5-73.1) % Lymph % (Auto) 26.1 (18.3-44.2) % [place] % (Auto) 13.6 H (2.6-8.5) % Eos % (Auto) 2.4 (0-4.4) % Baso % (Auto) 1.1 (0.2-1.2) % Lymph # (Auto) 1.21 (0.9-3.2) K/mm3 [place] # (Auto) 0.6 (0.1-0.6) K/mm3 Eos # (Auto) 0.1 (0-0.3) K/mm3 Baso # (Auto) 0.1 (0.0-0.1) K/mm3 Abs Immat Gran (auto) 0.01 (0.00-0.031) K/mm3 Absolute Neuts (auto) 2.6 (1.3-6.7) K/mm3 Absolute Nucleated RBC 0.000 (0.0-0.012) K/mm3 Nucleated RBC % 0.0 (0.0-0.2) % PT 13.5 (11.1-14.7) Seconds INR 1.0 APTT 32.6 (22.3-36.8) Seconds D-Dimer 1.47 H (<0.48) ug/mL Sodium 140 (137-145) mmol/L Potassium 3.8 (3.4-5.0) mmol/L Chloride 103 (98-107) mmol/L Carbon Dioxide 25 (22-30) mmol/L Anion Gap 12 (4-12) mmol/L BUN 19 (9-20) mg/dL Creatinine 0.90 (0.7-1.3) mg/dL Estim Creat Clear Calc 70 ml/min Estimated GFR > 60 (59 - ) Glucose 110 (65-110) mg/dL Calcium 10.2 (8.4-10.2) mg/dL Total Bilirubin 0.9 (0.2-1.3) mg/dL AST 22 (17-59) U/L ALT 21 (6-50) U/L Alkaline Phosphatase 87 (38-126) U/L Troponin I < 0.012 < 0.012 (0.000-0.034) ng/mL NT-Pro-B Natriuret Pep 39 (19.9-100) pg/mL Total Protein 7.6 (6.3-8.2) g/dL Albumin 4.5 (3.5-5.1) g/dL Lipase 75 (23-300) U/L <Wang Leal MD - Last Filed: 09/18/25 20:09> Imaging Data Attestation: I personally reviewed and interpreted this imaging study as follows: <Angelina J. Misbah, PA - Last Filed: 09/18/25 16:07> Radiologist's impression: ITS Impressions Chest X-Ray 09/18/25 10:42 IMPRESSION: 2 view chest x-ray within normal limits. Head CT 09/18/25 12:19 IMPRESSION: 1. No acute intracranial findings. CTA IMPRESSION: There is no pulmonary embolism, aortic dissection, pericardial fluid or thoracic aneurysm. No acute lung findings. 5.6 mm nodule within the right middle lobe. There is a 3.9 mm nodule within the left lower lobe. <RUSSELL Hinton - Last Filed: 09/18/25 16:07> ECG Data EKG #1: ECG completion date: 09/18/25 <RUSSELL Hinton - Last Filed: 09/18/25 16:07> ECG completion time: 09:51 <RUSSELL Hinton - Last Filed: 09/18/25 16:07> EKG Interpretation: normal rate, sinus rhythm and ST depression (mild in lateral leads) <RUSSELL Hinton - Last Filed: 09/18/25 16:07> EKG #2: ECG completion date: 09/18/25 <RUSSELL Hinton - Last Filed: 09/18/25 16:07> ECG completion time: 12:21 <RUSSELL Hinton - Last Filed: 09/18/25 16:07> EKG Interpretation: normal rate, sinus rhythm and other (Improvement in lateral lead depressions) <RUSSELL Hinton - Last Filed: 09/18/25 16:07> Discharge Plan Discharge Clinical Impression: Chest pain <RUSSELL Hinton - Last Filed: 09/18/25 16:07> Patient Disposition: Still a Patient <RUSSELL Hinton - Last Filed: 09/18/25 16:07> Condition: Stable <RUSSELL Hinton - Last Filed: 09/18/25 16:07> Quality HEART score for chest pain patients History: slightly suspicious <RUSSELL Hinton - Last Filed: 09/18/25 16:07> ECG: non specific repolarization disturbance/LBTB/PM <RUSSELL Hinton - Last Filed: 09/18/25 16:07> Age: > or = to 65 years <RUSSELL Hinton - Last Filed: 09/18/25 16:07> Risk factors: no risk factors known <RUSSELL Hinton - Last Filed: 09/18/25 16:07> Troponin: < or = to 1x normal limit <RUSSELL Hinton - Last Filed: 09/18/25 16:07> Heart score: 3 <RUSSELL Hinton - Last Filed: 09/18/25 16:07> 3 <Wang Leal MD - Last Filed: 09/18/25 20:09>
[2025-09-18 10:37] LABS: Troponin I < 0.012 ng/mL (0.000-0.034)
[2025-09-18 11:04] LABS: NT Pro B Type Natriuretic Pept 39 pg/mL (19.9-100)
--- OUTSIDE RECORDS SUMMARY | 2025-09-18 11:55 | XMS_ITS | Clinical Summary ---
Author Organization [facility] [employer] Address [address] [place] [address] Care Team Providers Care Language Therapist Name Role Phone Stephan Subramanian MD Primary Care Provider Source Comments [facility],non-owned Affiliates and Associated Physician Practices is amultiple site organization consisting of ambulatory clinics and hospital sitesin [place], [place], [place]. This disclosure is being madepursuant to the Care Everywhere program and may not contain all information available regarding this patient. Last updated 18.[facility] [employer] Allergies Active Allergy Reactions Criticality Noted Date [...] patient's age to complete this topic Insurance [facility] MANAGED MEDICARE ADV Care Teams Language Therapist Relationship Specialty Start Date End Date Stephan Subramanian MD [address] [facility] [address] [place] [address] PCP - General Internal Medicine 04/07/17
--- NOTE | 2025-09-18 12:19 | ECG_ITS ---
Test Date: 2025-09-18 12:21:59 Measurements Intervals [place] Rate: 69 P: 51 MA: 136 QRS: 32 QRSD: 82 T: 46 QT: 365 QTc: 394 Interpretive Statements SINUS RHYTHM Compared to ECG 09/18/2025 09:51:35 No significant changes Electronically Signed On 09-18-2025 18:06:53 PRINCIPAL STATISTICAL PROGRAMMER by Alejandra Hale M.D.
[2025-09-18 12:56] LABS: Troponin I < 0.012 ng/mL (0.000-0.034)
--- NOTE | 2025-09-18 15:16 | WPCEDHO ---
ED Hand Off Checklist All vitals saved:Y IV Site documented:Y All med administrations documented:Y Triage Note Triage Note Left sided chest pain that 09/18/25 09:54 radiates down left arm since last night with SOB and nausea. Hx of dry eyes with discomfort today Allergies propoxyphene (From Darvon) Allergy (Mild, Verified 09/18/25 09:41) Rash propofol Adverse Reaction (Severe, Verified 09/18/25 09:41) Headache morphine Adverse Reaction (Mild, Verified 09/18/25 09:41) Nausea Family History (Last Reviewed 09/07/25 @ 14:03 by Melisa Manning MA) Sibling Patient's sister is in good health Family history of diabetes mellitus in first degree relative Diabetes mellitus Heart disease Arthritis Mother Family history of diabetes mellitus in first degree relative Diabetes mellitus Osteoporosis Hearing loss Arthritis Father Family history of malignant neoplasm Cerebrovascular accident Melanoma Grandparent Diabetes mellitus Other Carcinoma of colon Family history of bipolar disorder Administered/Completed Medications Discontinued Medications Aspirin (Aspirin 81 Mg Chewable Tablet) 324 mg PO ONCE STA Stop: 09/18/25 09:46 Last Admin: 09/18/25 10:21 Dose: 324 mg Documented By: GILDARDO Interventions/Assessments IV / Saline Lock, Insert Start: 09/18/25 09:45 Freq: STAT Status: Active Protocol: Document 09/18/25 10:06 CMM (Rec: 09/18/25 10:07 CMM [id number]) IV Assessment Peripheral Access Left Antecubital IV Catheter Access Initiated IV Insertion Date 09/18/25 IV Insertion Time 10:07 Catheter Gauge 20 IV Insertion 1 Attempts IV Site Assessment WNL IV Care and WNL Maintenance PA: Cardiovascular Assessment Start: 09/18/25 09:45 Freq: Status: Active Protocol: Document 09/18/25 09:57 CMM (Rec: 09/18/25 09:58 CMM [id number]) Cardiovascular Assessment Cardiovascular Chest Pain,Nausea,Numbness Symptoms Chest Pain Assessment Chest Pain Intensity 10 Chest Pain Location Left Chest Chest Pain Radiation Left Arm PA: Respiratory Assessment Start: 09/18/25 09:45 Freq: Status: Active Protocol: Document 09/18/25 09:57 CMM (Rec: 09/18/25 09:58 CMM [id number]) Respiratory Assessment Symptoms None Effort Normal Cough Description None Oxygen Delivery Oxygen Delivery Room Air Last Vital Signs Temperature 97.6 F 09/18/25 09:59 Pulse Rate 85 09/18/25 15:13 Respiratory Rate 22 H 09/18/25 15:13 Pulse Oximetry 95 09/18/25 15:13 Blood Pressure 143/84 H 09/18/25 15:13 Blood Pressure Mean 103 09/18/25 15:13 Blood Pressure Position Sitting 09/18/25 15:13 Oxygen Delivery Room Air 09/18/25 09:57 Weight 72.6 kg 09/18/25 10:00 Last Result - Abnormals Only RBC 4.55 M/mm3 (4.6-6.20) L 09/18/25 10:07 Hgb 13.6 g/dL (14.0-18.0) L 09/18/25 10:07 Hct 40.5 % (42.0-52.0) L 09/18/25 10:07 Coke % (Auto) 13.6 % (2.6-8.5) H 09/18/25 10:07 D-Dimer 1.47 ug/mL (<0.48) H 09/18/25 10:07 Most Recent Suicide Severity Rating Suicide Severity Rating NO RISK INDICATED 09/18/25 09:54
[2025-09-18 16:02] LABS: Troponin I < 0.012 ng/mL (0.000-0.034)
--- NOTE | 2025-09-18 16:03 | ADMGEN ---
This patient, Jessica Chan, was admitted to IMU Room 210-01 at 1546. Patient/family oriented to hospital policies and general routines including ID bracelet, bed and alarms, visiting hours, pain management, procedures, bathroom and other care routines, personal items, smoking policy, room service/diet, and visiting hours. Information on how to activate the Rapid Response Team has been discussed. Patient/Family are encouraged to report perceived risks to care and to ask questions if they do not understand what they are told or what they should do.
--- NOTE | 2025-09-18 16:41 | PM.IMHP ---
H&P: HPI History of Present Illness Date/Time: 09/18/25 16:41 Chief Complaint: Chest pain, left arm pain Narrative: 70-year-old male past medical history of prostate cancer status post radiation therapy 2023, cervical fusion C3-C6 in 1982, GERD, fibromyalgia presents to the ED on 09/18/2025 with complaints of chest pain with left arm pain. Chest pain started last night and continued this morning, prompting him to visit the ED. patient describes the pain as a continuous painful pressure. Patient states he was not doing anything when the chest pain started. He further endorses increase in weakness, slight dyspnea, and increase in bilateral lower extremity edema. Patient's reports a decline in his mental state in the past few months and states it has progressed further in the past couple of weeks. Patient and deny fevers, chills, loss of consciousness, falls, nausea or vomiting. Patient does have reported intermittent hematuria. Upon further investigation of the patient's reported arm pain, it was discovered that it is actually a decrease in sensation. Patient's states that for years now the patient does have intermittent numbness in his bilateral upper extremities due to his previous cervical spine surgery. Patient's further states that these mental decline, increased weakness, and noticeably slow speech and movement started after patient had completed radiation therapy for his prostate cancer and has continued to progress. Patient is mostly in a chair throughout the day and only gets up to use the bathroom. Initial vital signs 154/104, HR 89, respirations 20, afebrile and 100% on room air. Labs largely unremarkable. D-dimer elevated at 1.47. Renal function within normal limits. Troponin negative x3, BNP 39. Lipid panel with triglycerides 70, cholesterol 174, LDL cholesterol 88, HDL cholesterol 50 Chest x-ray within normal limits. Head CT no acute intracranial findings. Chest CTA shows no pulmonary embolism, aortic dissection, or pericardial fluid or thoracic aneurysm. No acute findings. There is a 5.6 mm nodule within the right middle lobe and a 3.9 mm nodule within the left lower lobe. EKG with NSR x2 Review of Systems Review of Systems: All systems reviewed & are unremarkable except as noted in HPI and below PMFSH Past Medical History Medical History (Updated 09/19/25 @ 00:13 by Leann Fan, REGIS) History of radiation therapy prostate 2023 Chronic, continuous use of opioids Screening for colon cancer Acquired fusion of cervical spine (~1982) Osteoarthritis GERD (gastroesophageal reflux disease) Cervicalgia BMI 25.0-25.9,adult Cannabis dependence Fibromyalgia Surgical History Surgical History History of inguinal herniorrhaphy 10/24/24 Laparoscopic right inguinal hernia repair with mesh, da Pres[place] assisted Dr. Underwood History of vasectomy (~1993) History of cholecystectomy (~2015) History of appendectomy (~1965) Family History Family History Sibling Patient's sister is in good health Family history of diabetes mellitus in first degree relative Diabetes mellitus Heart disease Arthritis Mother Family history of diabetes mellitus in first degree relative Diabetes mellitus Osteoporosis Hearing loss Arthritis Father Family history of malignant neoplasm Cerebrovascular accident Melanoma eye Grandparent Diabetes mellitus Other Carcinoma of colon Family history of bipolar disorder Social History Social History Smoking status: Smoker, status unknown Tobacco type: pipe Second hand tobacco smoke exposure: Yes Additional smoking assessment comments: cannabis Alcohol intake: former Substance use: current Substance use type: marijuana Other substance usage details: smoke and edibles ,gummies Lack of Transportation: No Lack of Food: Never True Current Housing: I Have Housing Concerned About Future Housing: No Difficulty Paying Gas/Electric Bills: No Difficulty Paying for Meds: No Currently Unemployed: No Education: High School Diploma/GED Difficulty w/ Childcare or Family Care: No Living arrangements: alone Additional living arrangements comments: Gender identity (if verbalized by the patient): Male Spiritual care concerns: No Meds Home Medications and Allergies Home Medications ?Medication ?Instructions ?Recorded ?Confirmed ?Type carisoprodol 350 mg tablet 350 mg PO TID PRN muscle pain #90 07/06/25 09/18/25 Rx tabs acetaminophen 300 mg-codeine 15 mg 1 tablet PO Q4H PRN pain #90 tabs 07/10/25 09/18/25 Rx tablet cephalexin 500 mg capsule 500 mg PO Q8H #60 caps 08/08/25 09/18/25 Rx nystatin 100,000 unit/gram topical 1 applic topical TID #60 grams 08/28/25 09/18/25 Rx cream diazepam 10 mg tablet 10 mg PO TID muscle spasm 09/18/25 09/18/25 History ibuprofen 800 mg tablet 800 mg PO TID PRN pain 09/18/25 09/18/25 History Allergies Allergy/AdvReac Type Severity Reaction Status Date / Time propoxyphene (From Darvon) Allergy Mild Rash Verified 09/18/25 16:24 propofol AdvReac Severe Headache Verified 09/18/25 16:24 morphine AdvReac Mild Nausea Verified 09/18/25 16:24 Vital Signs Vital Signs - 24 hr 09/18/25 09:54 09/18/25 09:57 09/18/25 09:59 Temperature 97.6 F Pulse Rate 89 Respiratory Rate 20 Blood Pressure 154/104 H Pulse Oximetry 100 Oxygen Delivery Room Air Room Air 09/18/25 10:47 09/18/25 15:13 09/18/25 16:00 Temperature 97.8 F Pulse Rate 74 85 76 Respiratory Rate 16 22 H 16 Blood Pressure 138/73 143/84 H 155/91 H Pulse Oximetry 99 95 100 Oxygen Delivery Exam Narrative: GENERAL: Chronically ill appearing, in no acute distress. HEAD: Normocephalic, atraumatic. EYES: PERRLA. Conjunctivae clear. NOSE: Normal no drainage. THROAT: Pharynx clear, no exudate. NECK: Trachea midline. No adenopathy, no masses. RESPIRATORY: Airway patent, respirations nonlabored. CTA. CARDIOVASCULAR: Regular rate and rhythm GASTROINTESTINAL: Abdomen is soft and nontender. No organomegaly. Bowel sounds normal in all quadrants. GENITOURINARY: Defer MUSCULOSKELETAL: Moves all extremities. No gross deformities. No calf tenderness. Trace bilateral lower extremity edema. SKIN: Warm, dry, normal color. NEURO: A&O X3. Confused on date. Speech clear but slow. Strength equal in upper and lower extremities. Left arm with decreased sensation PSYCHIATRIC: Normal interaction H&P: Results Labs Labs: Short CBC 09/18/25 Range/Units 10:07 WBC 4.6 (4.5-10.0) K/mm3 Hgb 13.6 L (14.0-18.0) g/dL Hct 40.5 L (42.0-52.0) % Plt Count 254 (150-375) k/mm3 [facility] 09/18/25 10:07 Sodium 140 Potassium 3.8 Chloride 103 Carbon Dioxide 25 BUN 19 Creatinine 0.90 Glucose 110 Calcium 10.2 Cardiac Enzymes 09/18/25 09/18/25 09/18/25 Range/Units 10:07 12:21 15:31 Troponin I < 0.012 < 0.012 < 0.012 (0.000-0.034) ng/mL Liver Function 09/18/25 Range/Units 10:07 Total Bilirubin 0.9 (0.2-1.3) mg/dL AST 22 (17-59) U/L ALT 21 (6-50) U/L Alkaline Phosphatase 87 (38-126) U/L Albumin 4.5 (3.5-5.1) g/dL Assessment and Plan Assessment and plan (1) Chest pain: Qualifiers: Chest pain type: unspecified Qualified Code(s): R07.9 - Chest pain, unspecified Code(s): R07.9 - Chest pain, unspecified Status: Acute Assessment and Plan: Complaints of chest pain with left arm pain. Chest pain started last night and continued this morning, prompting him to visit the ED. patient describes the pain as a continuous painful pressure. Patient states he was not doing anything when the chest pain started. EKG with sinus rhythm x2. Chest x-ray with no acute cardiopulmonary abnormality. D-dimer elevated at 1.47. Chest CTA negative for pulmonary embolism. DDx include GERD, costochondritis, musculoskeletal strain, NSTEMI, cholecystitis - Troponin: <0.012 x3 - ASA 324 mg given in ED - cardiology consulted, awaiting recs - lipid panel with triglycerides 70, cholesterol 174, LDL cholesterol 88, HDL cholesterol 50 - telemetry monitoring (2) Perirectal abscess: Code(s): K61.1 - Rectal abscess Status: Acute Assessment and Plan: Patient seen in the outpatient setting for perirectal pain. -continue cephalexin 500 mg p.o. q.8 hours -has follow-up scheduled with Urology (3) Chronic pain: Qualifiers: Chronic pain type: other chronic pain Qualified Code(s): G89.29 - Other chronic pain Code(s): G89.29 - Other chronic pain Status: Chronic Assessment and Plan: Chronic neck and back pain. History of fibromyalgia -continue Soma 350 mg p.o. t.i.d. p.r.n. -continue diazepam 10 mg p.o. t.i.d. -tramadol p.o. q.6 p.r.n. -acetaminophen 650 mg p.o. q.6 p.r.n. (4) Fungal skin infection: Code(s): B36.9 - Superficial mycosis, unspecified Status: Acute Assessment and Plan: Patient seen about a month ago outpatient with complaints of a fungal rash in groin area and scrotum. -continue miconazole topical q.12 hours (5) Hematuria: Qualifiers: Hematuria type: gross Qualified Code(s): R31.0 - Gross hematuria Code(s): R31.9 - Hematuria, unspecified Status: Chronic Assessment and Plan: Intermittent gross hematuria. Patient has follow-up scheduled with Urology. Possible cystoscopy. Currently no hematuria. -thought to be related to radiation therapy (6) Altered mental status: Qualifiers: Altered mental status type: unspecified Qualified Code(s): R41.82 - Altered mental status, unspecified Code(s): R41.82 - Altered mental status, unspecified Status: Chronic Assessment and Plan: Patient's mental status has been declining over the past year after completing radiation therapy. Patient is A&O x3, confused about date. He is able answer questions but at times responds with unrelated subject matter. Speech is slow. -unable to obtain MRI due to patient's previous cervical spine fusion. -consult neurology -c possibly related to history of radiation therapy (7) Paresthesia of arm: Code(s): R20.2 - Paresthesia of skin Status: Acute Assessment and Plan: Patient presented with complaints of chest pain that radiated to left arm. Further questioning revealed the arm is not painful but has decreased sensation. Compared to the right. states over the years patient has had intermittent numbness of his bilateral upper extremities related to his C-spine history. -unable obtain MRI. See above -neurology consult (8) History of radiation therapy: Code(s): Z92.3 - Personal history of irradiation Status: Chronic Assessment and Plan: Patient completed radiation therapy for prostate cancer on 09/15/2024, receiving 45 treatments in total. states patient's mental and physical decline started after completing radiation therapy. Plan Diet: Heart healthy GI prophylaxis: NA DVT prophylaxis: Lovenox 40 mg daily lines/drains: PIV Fluids: NA Code status: Full Quality VTE Prophylaxis VTE prophylaxis: pharmacologic ordered Hospitalist MIPS Advance Care Plan I have confirmed that the patient's Advanced Care Plan is present, code status is documented, or surrogate decision maker is listed in patient medical record.: Yes Medication Reconciliation I have utilized all available resources to obtain, update and review the patients current medications (includes all prescriptions, OTC, herbals, cannabis, and nutritional supplements).: Yes
[2025-09-18 19:12] LABS: Cholesterol 174 mg/dL (0-200); HDL Direct 50 mg/dL; Triglycerides 70 mg/dL (<150)
[2025-09-18 20:24] LABS: Vitamin B12 300.0 pg/mL (239-931)
[2025-09-18] MEDS: diazePAM (*CRX) 10 MG TABLET PO (20:46)
[2025-09-18] MEDS: traMADol HCL (*CRX) 50 MG TABLET PO (20:46)
[2025-09-18] MEDS: CEPHALEXIN 500 MG CAPSULE PO (20:46)
[2025-09-18] MEDS: MICONAZOLE NITRATE 2% CREAM 30 GM TUBE 1 APPLIC TOPICAL (20:47)
[2025-09-19] VITALS (20 sets, daily range): BP systolic 128–149; BP diastolic 74–99; PULSE 68–104; RESP 16–20; TEMP 36.4–36.8; O2SAT 18–100
--- NOTE | 2025-09-19 | ECHO_ITS ---
Patient Info Name: Jessica Chan Age: 70 years : 1955 Gender: Male Ht: 72 in Wt: 156 lbs BSA: 1.89 m2 HR: 90 bpm BP: 143 / 99 mmHg Technical Quality: Poor Exam Date: 09/19/2025 12:59 PM Patient Status: O Admit Date: 09/18/2025 Exam Type: CA echo dop bubble study w con Complete two-dimentional, color flow and Doppler transthoracic echocardiogram is performed with agitated saline and with contrast to opacify the left ventricle and to improve the delineation of the left ventricle endocardial borders. Staff Referring Physician: Leann Fan Employment Office Clerk: Yadiel Lee III Attending Provider: Carlos Kinsey Contrast/Agitated Saline Contrast/Ag. Saline: Definity Amount: 2.00 ml Administered By: Yadiel Lee III Existing IV Access: Yes IV Access Condition: patent with no signs of infiltration Contrast/Ag. Saline: Agitated Saline Amount: 16.00 ml Existing IV Access: Yes IV Access Condition: patent with no signs of infiltration Reason for Poor Study: poor echocardiographic windows Summary 1. Poor windows, off-axis views. 2. There is normal biventricular size and systolic function. 3. There are no significant valvular abnormalities in this study. 4. The atrial septum is normal. Agitated saline study did not reveal any [id number] shunt. Left Ventricle The left ventricle is normal in size and systolic function. The left ventricular ejection fraction is visually estimated to be 60-65%. Right Ventricle The right ventricle is normal in size and systolic function. Left Atria The left atrium is normal size. Right Atria The right atrium is normal size. Atrial Septum The atrial septum is normal. Agitated saline study did not reveal any [id number] shunt. Aortic Valve The aortic valve is not well visualized. There is no aortic stenosis. There is no aortic regurgitation. Pulmonic Valve The pulmonic valve is not well visualized. Mitral Valve The mitral valve is normal. There is no mitral regurgitation. Tricuspid Valve The tricuspid valve is grossly normal. There is no tricuspid regurgitation in this study. Pericardium/Pleural Pericardium is normal in appearance with no evidence for significant pericardial effusion. Inferior Vena Cava Normal inferior vena cava with >50% collapse upon inspiration consistent with normal right atrial pressure, 3 mmHg. Aorta The aortic root at the level of the sinus of Valsalva measures 3.4 cm in diameter. Left Ventricular Outflow Tract Name Value Normal LVOT 2D LVOT Diameter 2.2 cm LVOT Doppler LVOT Peak Velocity 85 cm/s LVOT Peak Gradient 3 mmHg LVOT Mean Gradient 1 mmHg LVOT VTI 15 cm LVOT VTI/AV VTI Ratio 1.1 LVOT Stroke Volume 57 ml LVOT CO 5.2 l/min LVOT CI 2.7 l/min/m2 Pulmonic Valve Name Value Normal PV Doppler PV Peak Velocity 82 cm/s PV Peak Gradient 3 mmHg PV Mean Gradient 1 mmHg Mitral Valve Name Value Normal MV Regurgitation Doppler MR Peak Gradient 3 mmHg MV Diastolic Function MV E Peak Velocity 45 cm/s MV A Peak Velocity 66 cm/s MV E/A 0.7 MV Decel Time (PW) 155 ms MV Annular TDI MV E/e' (Septal) 7.6 MV E/e' (Lateral) 5.3 MV E/e' (Average) 6.4 Tricuspid Valve Name Value Normal Estimated PAP/RSVP RA Pressure 3 mmHg <=5 TV Annular TDI TV Lateral Kailee s' Velocity 37.0 cm/s >=9.5 Aortic Valve Name Value Normal AV Doppler AV Peak Velocity 96 cm/s AV Peak Gradient 4 mmHg AV Mean Gradient 2 mmHg AV VTI 14 cm AV Area (Cont Eq VTI) 4.2 cm2 >=3.0 AV Area (Cont Eq Elliott) 3.3 cm2 AV DI (Elliott) 0.88 AV Regurgitation 2D LVOT Area 3.8 cm2 Ventricles Name Value Normal LV Dimensions 2D/MM IVS Diastolic Thickness (2D) 1.1 cm 0.6-1.0 LVID Diastole (2D) 3.8 cm 4.2-5.8 LVIW Diastolic Thickness (2D) 0.9 cm 0.6-1.0 LVID Systole (2D) 2.6 cm 2.5-4.0 LVOT Diameter 2.2 cm LV Mass (2D Cubed) 121.02 g 88.00-224.00 LV Mass Index (2D Cubed) 64 g/m2 49-115 Relative Wall Thickness (2D) 0.49 <=0.42 LV Fractional Shortening/Ejection Fraction 2D/MM LV Fractional Shortening (2D) 31 % 25-43 LV EF (2D Teichholz) 60 % Atria Name Value Normal RA Dimensions RA Systolic Major Channing Length (4C) 4.8 cm 2.1-2.7 RA Area (4C) 14.4 cm2 <=18.0 Report Signatures Electronically signed by Jagdish cazares 09/20/2025 10:20 AM
[2025-09-19 03:45] LABS: Hematocrit 39.3 % (42.0-52.0); Hemoglobin 13.1 g/dL (14.0-18.0); Immature Granulocyte Percent A 0.3 % (0-0.5); Lymphocytes Absolute Auto 0.93 K/mm3 (0.9-3.2); Mean Corpuscular HGB Conc 33.3 g/dl (32-36); Mean Corpuscular Hemoglobin 29.8 pg (26-34); Mean Corpuscular Volume 89.3 fl (80-100); Nucleated Red Blood Cells Absolute Auto 0.000 K/mm3 (0.0-0.012); Nucleated Red Blood Cells Perc 0.0 % (0.0-0.2); Platelet Count Result 251 k/mm3 (150-375); Red Blood Count 4.40 M/mm3 (4.6-6.20); White Blood Count 5.7 K/mm3 (4.5-10.0)
[2025-09-19 04:01] LABS: Alanine Aminotransferase 18 U/L (6-50); Albumin Level 4.2 g/dL (3.5-5.1); Alkaline Phosphatase 90 U/L (38-126); Anion Gap 8 mmol/L (4-12); Aspartate Amino Transferase 22 U/L (17-59); Bilirubin,Total 0.7 mg/dL (0.2-1.3); Blood Urea Nitrogen 18 mg/dL (9-20); Calcium 9.5 mg/dL (8.4-10.2); Carbon Dioxide 25 mmol/L (22-30); Chloride 104 mmol/L (98-107); Estimated CRCL calculation 68 ml/min; Estimated Glomerular Filt Rate > 60; Glucose 99 mg/dL (65-110); Potassium 4.1 mmol/L (3.4-5.0); Sodium 137 mmol/L (137-145); Total Protein 7.2 g/dL (6.3-8.2)
[2025-09-19] MEDS: CEPHALEXIN 500 MG CAPSULE PO ×3 (05:32→21:00)
[2025-09-19] MEDS: diazePAM (*CRX) 10 MG TABLET PO ×3 (09:06→21:00)
[2025-09-19] MEDS: MICONAZOLE NITRATE 2% CREAM 30 GM TUBE 1 APPLIC TOPICAL ×2 (09:06→21:01)
[2025-09-19] MEDS: ACETAMINOPHEN 325 MG TABLET 650 MG PO (12:38)
[2025-09-19] MEDS: traMADol HCL (*CRX) 50 MG TABLET PO ×2 (12:39→21:00)
--- NOTE | 2025-09-19 12:46 | WPDNEURCNPN ---
Consult date: 09/19/25 HPI: Jessica Chan is a 70 year old male admitted to the hospital through the emergency room for the complaints of chest pain which woke him up throughout the night and continued into the morning. Chest pain was located mainly on the left side with radiation down to his left upper extremity but he also experienced achiness, shortness of breath, and swelling of the lower extremity over the last couple of days. Patient's reported decline in his mental clarity over the last several months. Patient has been taking diazepam 10mg 3 times a day with ibuprofen 800mg 3 times a day p.r.n. for the pain. His reportedly allergic to Darvocet, propofol, and morphine. He has undergone radiation treatment for the prostatic carcinoma in , he has chronic use of opioids, he has undergone fusion of cervical spine 1982 with underlying osteoarthritis and clinical cervicalgia, he is also reportedly cannabis dependent with additional history of fibromyalgia. At present is a former alcohol drinker currently marijuana user. On initial exam in the emergency room his vital signs were normal blood pressure 154/104 and general physical exam was normal so as the neurological examination. His vital signs was blood pressure 155/90, CBC normal, BMP normal, mast scan normal, chest x-ray negative, CT scan of the head negative for the bleed or any space-occupying lesion CTA of the chest negative, incidental finding of 5.6mm nodule within the right middle lobe, an EKG without any atrial fibrillation. Review of Systems Review of Systems: All systems reviewed & are unremarkable except as noted in HPI and below PMFSH Past Medical History Medical History (Updated 09/19/25 @ 00:13 by Leann Fan, [facility]) History of radiation therapy prostate 2023 Chronic, continuous use of opioids Screening for colon cancer Acquired fusion of cervical spine (~1982) Osteoarthritis GERD (gastroesophageal reflux disease) Cervicalgia BMI 25.0-25.9,adult Cannabis dependence Fibromyalgia Surgical History Surgical History History of inguinal herniorrhaphy 10/24/24 Laparoscopic right inguinal hernia repair with mesh, da [place] assisted Dr. Underwood History of vasectomy (~1993) History of cholecystectomy (~2015) History of appendectomy (~1965) Family History Family History Sibling Patient's sister is in good health Family history of diabetes mellitus in first degree relative Diabetes mellitus Heart disease Arthritis Mother Family history of diabetes mellitus in first degree relative Diabetes mellitus Osteoporosis Hearing loss Arthritis Father Family history of malignant neoplasm Cerebrovascular accident Melanoma eye Grandparent Diabetes mellitus Other Carcinoma of colon Family history of bipolar disorder Social History Social History Smoking status: Smoker, status unknown Tobacco type: pipe Second hand tobacco smoke exposure: Yes Additional smoking assessment comments: cannabis Alcohol intake: former Substance use: current Substance use type: marijuana Other substance usage details: smoke and edibles ,gummies Lack of Transportation: No Lack of Food: Never True Current Housing: I Have Housing Concerned About Future Housing: No Difficulty Paying Gas/Electric Bills: No Difficulty Paying for Meds: No Currently Unemployed: No Education: High School Diploma/GED Difficulty w/ Childcare or Family Care: No Living arrangements: alone Additional living arrangements comments: Gender identity (if verbalized by the patient): Male Spiritual care concerns: No Meds Home Medications and Allergies Home Medications ?Medication ?Instructions ?Recorded ?Confirmed ?Type carisoprodol 350 mg tablet 350 mg PO TID PRN muscle pain #90 07/06/25 09/18/25 Rx tabs acetaminophen 300 mg-codeine 15 mg 1 tablet PO Q4H PRN pain #90 tabs 07/10/25 09/18/25 Rx tablet cephalexin 500 mg capsule 500 mg PO Q8H #60 caps 08/08/25 09/18/25 Rx nystatin 100,000 unit/gram topical 1 applic topical TID #60 grams 08/28/25 09/18/25 Rx cream diazepam 10 mg tablet 10 mg PO TID muscle spasm 09/18/25 09/18/25 History ibuprofen 800 mg tablet 800 mg PO TID PRN pain 09/18/25 09/18/25 History Allergies Allergy/AdvReac Type Severity Reaction Status Date / Time propoxyphene (From Darvon) Allergy Mild Rash Verified 09/18/25 16:24 propofol AdvReac Severe Headache Verified 09/18/25 16:24 morphine AdvReac Mild Nausea Verified 09/18/25 16:24 Vital Signs Vital Signs - 24 hr 09/18/25 15:13 09/18/25 16:00 09/18/25 16:00 Temperature 36.6 C Pulse Rate 85 76 77 Respiratory Rate 22 H 16 Blood Pressure 143/84 H 155/91 H Pulse Oximetry 95 100 Oxygen Delivery Fraction of Inspired Oxygen 09/18/25 18:00 09/18/25 20:00 09/18/25 20:00 Temperature 36.4 C Pulse Rate 90 95 95 Respiratory Rate 16 16 Blood Pressure 139/86 Pulse Oximetry 97 97 Oxygen Delivery Room Air Fraction of Inspired Oxygen 09/18/25 20:00 09/18/25 21:50 09/19/25 00:00 Temperature Pulse Rate 81 75 71 Respiratory Rate 16 Blood Pressure Pulse Oximetry 97 Oxygen Delivery Room Air Fraction of Inspired Oxygen 09/19/25 00:00 09/19/25 00:00 09/19/25 02:00 Temperature 36.4 C L Pulse Rate 71 73 92 Respiratory Rate 16 Blood Pressure 147/88 H Pulse Oximetry 96 Oxygen Delivery Fraction of Inspired Oxygen 09/19/25 03:58 09/19/25 03:58 09/19/25 04:00 Temperature 36.4 C Pulse Rate 74 74 88 Respiratory Rate 16 16 Blood Pressure 149/97 H Pulse Oximetry 18 L 96 Oxygen Delivery Room Air Fraction of Inspired Oxygen 09/19/25 05:39 09/19/25 07:59 09/19/25 08:00 Temperature 36.5 C Pulse Rate 68 90 90 Respiratory Rate 18 18 Blood Pressure 143/99 H Pulse Oximetry 99 99 Oxygen Delivery Room Air Fraction of Inspired Oxygen 09/19/25 10:30 09/19/25 11:32 Temperature 36.8 C Pulse Rate 90 99 Respiratory Rate 20 Blood Pressure 140/94 H Pulse Oximetry 99 96 Oxygen Delivery Room Air Fraction of Inspired Oxygen 21 Results Labs 09/19/25 03:24 09/19/25 03:24 Labs: Short CBC 09/19/25 Range/Units 03:24 WBC 5.7 (4.5-10.0) K/mm3 Hgb 13.1 L (14.0-18.0) g/dL Hct 39.3 L (42.0-52.0) % Plt Count 251 (150-375) k/mm3 BMP 09/19/25 03:24 Sodium 137 Potassium 4.1 Chloride 104 Carbon Dioxide 25 BUN 18 Creatinine 0.89 Glucose 99 Calcium 9.5 Cardiac Enzymes 09/18/25 09/18/25 Range/Units 12:21 15:31 Troponin I < 0.012 < 0.012 (0.000-0.034) ng/mL Liver Function 09/19/25 Range/Units 03:24 Total Bilirubin 0.7 (0.2-1.3) mg/dL AST 22 (17-59) U/L ALT 18 (6-50) U/L Alkaline Phosphatase 90 (38-126) U/L Albumin 4.2 (3.5-5.1) g/dL
--- NOTE | 2025-09-19 12:49 | PM.CNCAR ---
Assessment and Plan Assessment and plan (1) Chest pain: Qualifiers: Chest pain type: unspecified Qualified Code(s): R07.9 - Chest pain, unspecified Code(s): R07.9 - Chest pain, unspecified Status: Acute Plan 70-year-old man with prostate cancer status post radiation therapy 2023, surgical fusion C3-C6 1982, fibromyalgia, and GERD presented with chest discomfort Chest discomfort -IL has been ruled out with serial troponins and currently chest pain-free -obtain transthoracic echocardiogram History of Present Illness History of Present Illness Consult date/time: 09/19/25 12:49 Requesting physician: Laenn Fan APRN Consult reason: chest pain Reason For Visit: Chest Pain Narrative: 70-year-old man with prostate cancer status post radiation therapy 2023, surgical fusion C3-C6 1982, fibromyalgia, and GERD presented with chest discomfort. Substernal chest pressure has been ongoing since yesterday morning with resolution yesterday evening after he was admitted. This morning he did not have any chest discomfort. He is minimally active and typically in his chair/recliner most of the day and evening. He does not know if he has any orthopnea. He denies any shortness of breath however once again he is very limited mobility given his debilitation. He has not noted any worsening in his chest discomfort or exacerbating symptoms. He was at rest when this occurred. Denies any syncopal events. Review of Systems Cardiovascular: Cardiovascular: Reports as per HPI Respiratory: Respiratory: Reports as per HPI [facility] Past Medical History Medical History (Updated 09/19/25 @ 00:13 by Leann Fan APRN) History of radiation therapy prostate 2023 Chronic, continuous use of opioids Screening for colon cancer Acquired fusion of cervical spine (~1982) Osteoarthritis GERD (gastroesophageal reflux disease) Cervicalgia BMI 25.0-25.9,adult Cannabis dependence Fibromyalgia Surgical History Surgical History History of inguinal herniorrhaphy 10/24/24 Laparoscopic right inguinal hernia repair with mesh, da [place] assisted Dr. Underwood History of vasectomy (~1993) History of cholecystectomy (~2015) History of appendectomy (~1965) Family History Family History Sibling Patient's sister is in good health Family history of diabetes mellitus in first degree relative Diabetes mellitus Heart disease Arthritis Mother Family history of diabetes mellitus in first degree relative Diabetes mellitus Osteoporosis Hearing loss Arthritis Father Family history of malignant neoplasm Cerebrovascular accident Melanoma eye Grandparent Diabetes mellitus Other Carcinoma of colon Family history of bipolar disorder Social History Social History Smoking status: Smoker, status unknown Tobacco type: pipe Second hand tobacco smoke exposure: Yes Additional smoking assessment comments: cannabis Alcohol intake: former Substance use: current Substance use type: marijuana Other substance usage details: smoke and edibles ,gummies Lack of Transportation: No Lack of Food: Never True Current Housing: I Have Housing Concerned About Future Housing: No Difficulty Paying Gas/Electric Bills: No Difficulty Paying for Meds: No Currently Unemployed: No Education: High School Diploma/GED Difficulty w/ Childcare or Family Care: No Living arrangements: alone Additional living arrangements comments: Gender identity (if verbalized by the patient): Male Spiritual care concerns: No Meds Home Medications and Allergies Home Medications ?Medication ?Instructions ?Recorded ?Confirmed ?Type carisoprodol 350 mg tablet 350 mg PO TID PRN muscle pain #90 07/06/25 09/18/25 Rx tabs acetaminophen 300 mg-codeine 15 mg 1 tablet PO Q4H PRN pain #90 tabs 07/10/25 09/18/25 Rx tablet cephalexin 500 mg capsule 500 mg PO Q8H #60 caps 08/08/25 09/18/25 Rx nystatin 100,000 unit/gram topical 1 applic topical TID #60 grams 08/28/25 09/18/25 Rx cream diazepam 10 mg tablet 10 mg PO TID muscle spasm 09/18/25 09/18/25 History ibuprofen 800 mg tablet 800 mg PO TID PRN pain 09/18/25 09/18/25 History Allergies Allergy/AdvReac Type Severity Reaction Status Date / Time propoxyphene (From Darvon) Allergy Mild Rash Verified 09/18/25 16:24 propofol AdvReac Severe Headache Verified 09/18/25 16:24 morphine AdvReac Mild Nausea Verified 09/18/25 16:24 Vital Signs Vital Signs - 24 hr 09/18/25 15:13 09/18/25 16:00 09/18/25 16:00 Temperature 36.6 C Pulse Rate 85 76 77 Respiratory Rate 22 H 16 Blood Pressure 143/84 H 155/91 H Pulse Oximetry 95 100 Oxygen Delivery Fraction of Inspired Oxygen 09/18/25 18:00 09/18/25 20:00 09/18/25 20:00 Temperature 36.4 C Pulse Rate 90 95 95 Respiratory Rate 16 16 Blood Pressure 139/86 Pulse Oximetry 97 97 Oxygen Delivery Room Air Fraction of Inspired Oxygen 09/18/25 20:00 09/18/25 21:50 09/19/25 00:00 Temperature Pulse Rate 81 75 71 Respiratory Rate 16 Blood Pressure Pulse Oximetry 97 Oxygen Delivery Room Air Fraction of Inspired Oxygen 09/19/25 00:00 09/19/25 00:00 09/19/25 02:00 Temperature 36.4 C L Pulse Rate 71 73 92 Respiratory Rate 16 Blood Pressure 147/88 H Pulse Oximetry 96 Oxygen Delivery Fraction of Inspired Oxygen 09/19/25 03:58 09/19/25 03:58 09/19/25 04:00 Temperature 36.4 C Pulse Rate 74 74 88 Respiratory Rate 16 16 Blood Pressure 149/97 H Pulse Oximetry 18 L 96 Oxygen Delivery Room Air Fraction of Inspired Oxygen 09/19/25 05:39 09/19/25 07:59 09/19/25 08:00 Temperature 36.5 C Pulse Rate 68 90 90 Respiratory Rate 18 18 Blood Pressure 143/99 H Pulse Oximetry 99 99 Oxygen Delivery Room Air Fraction of Inspired Oxygen 09/19/25 10:30 09/19/25 11:32 Temperature 36.8 C Pulse Rate 90 99 Respiratory Rate 20 Blood Pressure 140/94 H Pulse Oximetry 99 96 Oxygen Delivery Room Air Fraction of Inspired Oxygen 21 Exam Const: Other: Ill-appearing HENMT: Mouth: Yes moist mucous membranes Eyes: EOM: EOMs intact bilaterally Neck: Neck: no JVD Resp: Effort & Inspection: normal respiratory effort Auscultation: clear to auscultation bilaterally Cardio: Rate: regular rate Rhythm: regular rhythm GI: GI Palp: Yes Soft to palpation Neuro: Speech: normal speech Extrem: General: no pedal edema Results Labs and Meds 09/19/25 03:24 09/19/25 03:24 Lab results: Cardiac Enzymes 09/18/25 09/18/25 09/19/25 Range/Units 12:21 15:31 03:24 AST 22 (17-59) U/L Troponin I < 0.012 < 0.012 (0.000-0.034) ng/mL Lipids 09/18/25 Range/Units 15:31 Triglycerides 70 (<150) mg/dL Cholesterol 174 (0-200) mg/dL CBC 09/19/25 Range/Units 03:24 WBC 5.7 (4.5-10.0) K/mm3 RBC 4.40 L (4.6-6.20) M/mm3 Hgb 13.1 L (14.0-18.0) g/dL Hct 39.3 L (42.0-52.0) % Plt Count 251 (150-375) k/mm3 Lymph # (Auto) 0.93 (0.9-3.2) K/mm3 [place] # (Auto) 0.8 H (0.1-0.6) K/mm3 Eos # (Auto) 0.2 (0-0.3) K/mm3 Baso # (Auto) 0.0 (0.0-0.1) K/mm3 Comprehensive Metabolic Panel 09/19/25 Range/Units 03:24 Sodium 137 (137-145) mmol/L Potassium 4.1 (3.4-5.0) mmol/L Chloride 104 (98-107) mmol/L Carbon Dioxide 25 (22-30) mmol/L BUN 18 (9-20) mg/dL Creatinine 0.89 (0.7-1.3) mg/dL Glucose 99 (65-110) mg/dL Calcium 9.5 (8.4-10.2) mg/dL AST 22 (17-59) U/L ALT 18 (6-50) U/L Alkaline Phosphatase 90 (38-126) U/L Total Protein 7.2 (6.3-8.2) g/dL Albumin 4.2 (3.5-5.1) g/dL Intake and Output 09/18/25 09/19/25 09/19/25 23:59 07:59 15:59 Intake Total 386 350 Output Total 650 Balance 386 -300 Intake: Oral 386 350 Output: Urine 650 Patient Weight 09/19/25 23:59 Weight 71 kg
[2025-09-19] MEDS: PERFLUTREN LIPID MICROSPHERES 1.5 ML VIAL DILUTED TO 10 ML TOTAL VOLUME IV PUSH (14:34)
--- NOTE | 2025-09-19 14:35 | IVDEFINITY ---
Prior to administration of IV Definity the patient was educated on the risks and benefits of the imaging enhancing agent including potential adverse side effects. The patient verbalized understanding. Allergies were verified. No exclusion criteria were identified and at least one of the following inclusion criteria were met: 1) physician request, 2) patient technically difficult to image (per the [place] [employer] guidelines of two or more segments not discernable within the apical view), or 3) questionable left ventricular function. ?
--- NOTE | 2025-09-19 17:43 | PM.IMPN ---
Progress Note: A&P Assessment and Plan (1) Chest pain: Qualifiers: Chest pain type: unspecified Qualified Code(s): R07.9 - Chest pain, unspecified Code(s): R07.9 - Chest pain, unspecified Status: Acute Assessment and Plan: Complaints of chest pain with left arm pain. Chest pain started last night and continued this morning, prompting him to visit the ED. patient describes the pain as a continuous painful pressure. Patient states he was not doing anything when the chest pain started. EKG with sinus rhythm x2. Chest x-ray with no acute cardiopulmonary abnormality. D-dimer elevated at 1.47. Chest CTA negative for pulmonary embolism. DDx include GERD, costochondritis, musculoskeletal strain, NSTEMI, cholecystitis - Troponin: <0.012 x3 - ASA 324 mg given in ED - cardiology consulted, awaiting recs - lipid panel with triglycerides 70, cholesterol 174, LDL cholesterol 88, HDL cholesterol 50 - telemetry monitoring (2) Perirectal abscess: Code(s): K61.1 - Rectal abscess Status: Acute Assessment and Plan: Patient seen in the outpatient setting for perirectal pain. -continue cephalexin 500 mg p.o. q.8 hours -has follow-up scheduled with Urology (3) Chronic pain: Qualifiers: Chronic pain type: other chronic pain Qualified Code(s): G89.29 - Other chronic pain Code(s): G89.29 - Other chronic pain Status: Chronic Assessment and Plan: Chronic neck and back pain. History of fibromyalgia -continue Soma 350 mg p.o. t.i.d. p.r.n. -continue diazepam 10 mg p.o. t.i.d. -tramadol p.o. q.6 p.r.n. -acetaminophen 650 mg p.o. q.6 p.r.n. (4) Fungal skin infection: Code(s): B36.9 - Superficial mycosis, unspecified Status: Acute Assessment and Plan: Patient seen about a month ago outpatient with complaints of a fungal rash in groin area and scrotum. -continue miconazole topical q.12 hours (5) Hematuria: Qualifiers: Hematuria type: gross Qualified Code(s): R31.0 - Gross hematuria Code(s): R31.9 - Hematuria, unspecified Status: Chronic Assessment and Plan: Intermittent gross hematuria. Patient has follow-up scheduled with Urology. Possible cystoscopy. Currently no hematuria. -thought to be related to radiation therapy (6) Altered mental status: Qualifiers: Altered mental status type: unspecified Qualified Code(s): R41.82 - Altered mental status, unspecified Code(s): R41.82 - Altered mental status, unspecified Status: Chronic Assessment and Plan: Patient's mental status has been declining over the past year after completing radiation therapy. Patient is A&O x3, confused about date. He is able answer questions but at times responds with unrelated subject matter. Speech is slow. -unable to obtain MRI due to patient's previous cervical spine fusion. -consult neurology -c possibly related to history of radiation therapy (7) Paresthesia of arm: Code(s): R20.2 - Paresthesia of skin Status: Acute Assessment and Plan: Patient presented with complaints of chest pain that radiated to left arm. Further questioning revealed the arm is not painful but has decreased sensation. Compared to the right. states over the years patient has had intermittent numbness of his bilateral upper extremities related to his C-spine history. -unable obtain MRI. See above -neurology consult (8) History of radiation therapy: Code(s): Z92.3 - Personal history of irradiation Status: Chronic Assessment and Plan: Patient completed radiation therapy for prostate cancer on 09/15/2024, receiving 45 treatments in total. states patient's mental and physical decline started after completing radiation therapy. Plan Patient with history of prostate cancer s/p radiation threapy and cervical fusion C3-C6 in 1982, GERD, fibromyalgia presents to the ED on 09/18/2025 with complaints of chest pain with left arm pain. patient 3 sets of cardiac enzymes are negative, there are no acute changes on his EKG, patient chest pain is resolved, patient was seen by the relations coordinator and recommended to further evaluate patient needs cardiac ECHO, will follow up and further recommendation to follow. Diet: Heart healthy GI prophylaxis: NA DVT prophylaxis: Lovenox 40 mg daily lines/drains: PIV Fluids: NA Code status: Full Subjective Date/time seen: 09/19/25 17:43 Interval history: Chest pain, left arm pain H&P-Narrative: 70-year-old male past medical history of prostate cancer status post radiation therapy 2023, cervical fusion C3-C6 in 1982, GERD, fibromyalgia presents to the ED on 09/18/2025 with complaints of chest pain with left arm pain. Chest pain started last night and continued this morning, prompting him to visit the ED. patient describes the pain as a continuous painful pressure. Patient states he was not doing anything when the chest pain started. He further endorses increase in weakness, slight dyspnea, and increase in bilateral lower extremity edema. Patient's reports a decline in his mental state in the past few months and states it has progressed further in the past couple of weeks. Patient and deny fevers, chills, loss of consciousness, falls, nausea or vomiting. Patient does have reported intermittent hematuria. Upon further investigation of the patient's reported arm pain, it was discovered that it is actually a decrease in sensation. Patient's states that for years now the patient does have intermittent numbness in his bilateral upper extremities due to his previous cervical spine surgery. Patient's further states that these mental decline, increased weakness, and noticeably slow speech and movement started after patient had completed radiation therapy for his prostate cancer and has continued to progress. Patient is mostly in a chair throughout the day and only gets up to use the bathroom. Patient with history of prostate cancer s/p radiation threapy and cervical fusion C3-C6 in 1982, GERD, fibromyalgia presents to the ED on 09/18/2025 with complaints of chest pain with left arm pain. patient 3 sets of cardiac enzymes are negative, there are no acute changes on his EKG, patient chest pain is resolved, patient was seen by the relations coordinator and recommended to further evaluate patient needs cardiac ECHO, will follow up and further recommendation to follow. Review of Systems Review of Systems: All systems reviewed & are unremarkable except as noted in HPI and below Exam Narrative: Patient is comfortable, NAD HEENT: eyes are clear and none icteric LUNGS:CTA HEART: RR S1S2 ABD: BS+, Soft and nontender Lower extremities: no edema SKIN: nonjaundiced Neuro: grossly intact. Objective Data Vital Signs Vital Signs: Vital Signs - 24 hr 09/18/25 18:00 09/18/25 20:00 09/18/25 20:00 Temperature 36.4 C Pulse Rate 90 95 95 Respiratory Rate 16 16 Blood Pressure 139/86 Pulse Oximetry 97 97 Oxygen Delivery Room Air Fraction of Inspired Oxygen 09/18/25 20:00 09/18/25 21:50 09/19/25 00:00 Temperature Pulse Rate 81 75 71 Respiratory Rate 16 Blood Pressure Pulse Oximetry 97 Oxygen Delivery Room Air Fraction of Inspired Oxygen 09/19/25 00:00 09/19/25 00:00 09/19/25 02:00 Temperature 36.4 C L Pulse Rate 71 73 92 Respiratory Rate 16 Blood Pressure 147/88 H Pulse Oximetry 96 Oxygen Delivery Fraction of Inspired Oxygen 09/19/25 03:58 09/19/25 03:58 09/19/25 04:00 Temperature 36.4 C Pulse Rate 74 74 88 Respiratory Rate 16 16 Blood Pressure 149/97 H Pulse Oximetry 18 L 96 Oxygen Delivery Room Air Fraction of Inspired Oxygen 09/19/25 05:39 09/19/25 07:59 09/19/25 08:00 Temperature 36.5 C Pulse Rate 68 90 90 Respiratory Rate 18 18 Blood Pressure 143/99 H Pulse Oximetry 99 99 Oxygen Delivery Room Air Fraction of Inspired Oxygen 09/19/25 08:00 09/19/25 10:00 09/19/25 10:30 Temperature Pulse Rate 74 104 H 90 Respiratory Rate Blood Pressure Pulse Oximetry 99 Oxygen Delivery Room Air Fraction of Inspired Oxygen 21 09/19/25 11:32 09/19/25 12:00 09/19/25 12:00 Temperature 36.8 C Pulse Rate 99 99 97 Respiratory Rate 20 20 Blood Pressure 140/94 H Pulse Oximetry 96 96 Oxygen Delivery Room Air Fraction of Inspired Oxygen 09/19/25 14:00 09/19/25 16:00 09/19/25 16:14 Temperature 36.5 C Pulse Rate 92 84 84 Respiratory Rate 18 18 Blood Pressure 134/90 Pulse Oximetry 97 97 Oxygen Delivery Room Air Fraction of Inspired Oxygen Intake/Output Intake/Output: Intake & Output 09/16/25 09/17/25 09/18/25 09/19/25 23:59 23:59 23:59 23:59 Intake Total 386 590 Output Total 650 Balance 386 -60 Meds/Results Medications: Active Medications Generic Name Dose Route Start Last Admin Trade Name Freq PRN Reason Stop Dose Admin Acetaminophen 650 mg 09/18/25 23:57 09/19/25 12:38 Acetaminophen 325 Mg Tablet PO 650 mg Q6H PRN Administration Mild Pain (1-3) or Fever Carisoprodol 350 mg 09/18/25 18:47 Carisoprodol (*Crx) 350 Mg Tablet PO TID PRN muscle pain Cephalexin HCl 500 mg 09/18/25 22:00 09/19/25 14:16 Cephalexin 500 Mg Capsule PO 500 mg Q8H CARLA Administration Diazepam 10 mg 09/19/25 22:00 Diazepam (*Crx) 10 Mg Tablet PO Q8H CARLA Enoxaparin Sodium 40 mg 09/19/25 09:00 09/19/25 11:24 Enoxaparin 40 Mg/0.4 Ml Syringe SUB-Q Not Given DAILY CARAL Miconazole Nitrate 1 applic 09/18/25 21:00 09/19/25 09:06 Miconazole Nitrate 2% Cream 30 Gm Tube TOPICAL 1 applic Q12HR CARLA Administration Multi-Ingred Cream/Lotion/Oil/Oint 1 applic 09/18/25 21:00 09/18/25 20:46 Mineral Oil/White Petrolatum Ointment EACH EYE Not Given HS CARLA Tramadol HCl 50 mg 09/18/25 18:53 09/19/25 12:39 Tramadol Hcl (*Crx) 50 Mg Tablet PO 50 mg Q6H PRN Administration Pain Rated 4-6 Radiology Results: ITS Impressions Chest X-Ray 09/18/25 10:42 IMPRESSION: 2 view chest x-ray within normal limits. Head CT 09/18/25 12:19 IMPRESSION: 1. No acute intracranial findings. Chest CTA 09/18/25 15:06 IMPRESSION: There is no pulmonary embolism, aortic dissection, pericardial fluid or thoracic aneurysm. No acute lung findings. 5.6 mm nodule within the right middle lobe. There is a 3.9 mm nodule within the left lower lobe. All CT scans at this facility are performed using low dose modulation techniques as appropriate to perform exam including the following: automated exposure control; use of iterative reconstruction technique; adjustment of the mA and/or kV according to patient size (this includes techniques or standardized protocols for targeted exams where dose is matched to indication/reason for exam). Labs Labs: Laboratory Results - last 24 hr 09/18/25 09/19/25 15:31 03:24 WBC 5.7 RBC 4.40 L Hgb 13.1 L Hct 39.3 L MCV 89.3 MCH 29.8 MCHC 33.3 RDW 13.2 Plt Count 251 MPV 9.0 Immature Gran % (Auto) 0.3 Neut % (Auto) 65.4 Lymph % (Auto) 16.2 L [facility] % (Auto) 14.3 H Eos % (Auto) 3.1 Baso % (Auto) 0.7 Lymph # (Auto) 0.93 [facility] # (Auto) 0.8 H Eos # (Auto) 0.2 Baso # (Auto) 0.0 Abs Immat Gran (auto) 0.02 Absolute Neuts (auto) 3.7 Absolute Nucleated RBC 0.000 Nucleated RBC % 0.0 Sodium 137 Potassium 4.1 Chloride 104 Carbon Dioxide 25 Anion Gap 8 BUN 18 Creatinine 0.89 Estim Creat Clear Calc 68 Estimated GFR > 60 Glucose 99 Calcium 9.5 Total Bilirubin 0.7 AST 22 ALT 18 Alkaline Phosphatase 90 Total Protein 7.2 Albumin 4.2 Triglycerides 70 Cholesterol 174 LDL Cholesterol Direct 88 HDL Direct 50 Vitamin B12 300.0 Folate 7.6 Quality VTE Prophylaxis VTE prophylaxis: pharmacologic ordered
[2025-09-19] MEDS: carisoprodoL (*CRX) 350 MG TABLET PO (21:06)
[2025-09-20] VITALS (7 sets, daily range): BP systolic 110–142; BP diastolic 79–86; PULSE 68–110; RESP 16–20; TEMP 36.3–37; O2SAT 96–99; BMI 21.7
[2025-09-20 03:52] LABS: Hematocrit 39.2 % (42.0-52.0); Hemoglobin 12.9 g/dL (14.0-18.0); Immature Granulocyte Percent A 0.2 % (0-0.5); Lymphocytes Absolute Auto 0.90 K/mm3 (0.9-3.2); Mean Corpuscular HGB Conc 32.9 g/dl (32-36); Mean Corpuscular Hemoglobin 29.8 pg (26-34); Mean Corpuscular Volume 90.5 fl (80-100); Nucleated Red Blood Cells Absolute Auto 0.000 K/mm3 (0.0-0.012); Nucleated Red Blood Cells Perc 0.0 % (0.0-0.2); Platelet Count Result 212 k/mm3 (150-375); Red Blood Count 4.33 M/mm3 (4.6-6.20); White Blood Count 4.8 K/mm3 (4.5-10.0)
[2025-09-20 04:09] LABS: Alanine Aminotransferase 17 U/L (6-50); Albumin Level 4.1 g/dL (3.5-5.1); Alkaline Phosphatase 79 U/L (38-126); Anion Gap 6 mmol/L (4-12); Aspartate Amino Transferase 23 U/L (17-59); Bilirubin,Total 0.5 mg/dL (0.2-1.3); Blood Urea Nitrogen 20 mg/dL (9-20); Calcium 9.3 mg/dL (8.4-10.2); Carbon Dioxide 26 mmol/L (22-30); Chloride 104 mmol/L (98-107); Estimated CRCL calculation 67 ml/min; Estimated Glomerular Filt Rate > 60; Glucose 115 mg/dL (65-110); Magnesium 2.1 mg/dL (1.6-2.3); Potassium 4.2 mmol/L (3.4-5.0); Sodium 136 mmol/L (137-145); Total Protein 6.9 g/dL (6.3-8.2)
[2025-09-20] MEDS: CEPHALEXIN 500 MG CAPSULE PO (05:31)
[2025-09-20] MEDS: diazePAM (*CRX) 10 MG TABLET PO (05:31)
[2025-09-20] MEDS: carisoprodoL (*CRX) 350 MG TABLET PO (06:26)
[2025-09-20] MEDS: ENOXAPARIN 40 MG/0.4 ML SYRINGE SUB-Q (08:15)
[2025-09-20] MEDS: MICONAZOLE NITRATE 2% CREAM 30 GM TUBE 1 APPLIC TOPICAL (08:17)
--- NOTE | 2025-09-20 11:30 | P.DS_ITS ---
DS: Admitting Diagnosis Discharge Date 09/20/25 Admitting Diagnosis Chest pain, left arm pain DS: Discharge Diagnosis Discharge Diagnosis (1) Chest pain: Qualifiers: Chest pain type: unspecified Qualified Code(s): R07.9 - Chest pain, unspecified Code(s): R07.9 - Chest pain, unspecified Status: Acute Assessment and Plan: Complaints of chest pain with left arm pain. Chest pain started last night and continued this morning, prompting him to visit the ED. patient describes the pain as a continuous painful pressure. Patient states he was not doing anything when the chest pain started. EKG with sinus rhythm x2. Chest x-ray with no acute cardiopulmonary abnormality. D-dimer elevated at 1.47. Chest CTA negative for pulmonary embolism. DDx include GERD, costochondritis, musculoskeletal strain, NSTEMI, cholecystitis - Troponin: <0.012 x3 - ASA 324 mg given in ED - cardiology consulted, awaiting recs - lipid panel with triglycerides 70, cholesterol 174, LDL cholesterol 88, HDL cholesterol 50 - telemetry monitoring (2) Perirectal abscess: Code(s): K61.1 - Rectal abscess Status: Acute Assessment and Plan: Patient seen in the outpatient setting for perirectal pain. -continue cephalexin 500 mg p.o. q.8 hours -has follow-up scheduled with Urology (3) Chronic pain: Qualifiers: Chronic pain type: other chronic pain Qualified Code(s): G89.29 - Other chronic pain Code(s): G89.29 - Other chronic pain Status: Chronic Assessment and Plan: Chronic neck and back pain. History of fibromyalgia -continue Soma 350 mg p.o. t.i.d. p.r.n. -continue diazepam 10 mg p.o. t.i.d. -tramadol p.o. q.6 p.r.n. -acetaminophen 650 mg p.o. q.6 p.r.n. (4) Fungal skin infection: Code(s): B36.9 - Superficial mycosis, unspecified Status: Acute Assessment and Plan: Patient seen about a month ago outpatient with complaints of a fungal rash in groin area and scrotum. -continue miconazole topical q.12 hours (5) Hematuria: Qualifiers: Hematuria type: gross Qualified Code(s): R31.0 - Gross hematuria Code(s): R31.9 - Hematuria, unspecified Status: Chronic Assessment and Plan: Intermittent gross hematuria. Patient has follow-up scheduled with Urology. Possible cystoscopy. Currently no hematuria. -thought to be related to radiation therapy (6) Altered mental status: Qualifiers: Altered mental status type: unspecified Qualified Code(s): R41.82 - Altered mental status, unspecified Code(s): R41.82 - Altered mental status, unspecified Status: Chronic Assessment and Plan: Patient's mental status has been declining over the past year after completing radiation therapy. Patient is A&O x3, confused about date. He is able answer questions but at times responds with unrelated subject matter. Speech is slow. -unable to obtain MRI due to patient's previous cervical spine fusion. -consult neurology -c possibly related to history of radiation therapy (7) Paresthesia of arm: Code(s): R20.2 - Paresthesia of skin Status: Acute Assessment and Plan: Patient presented with complaints of chest pain that radiated to left arm. Further questioning revealed the arm is not painful but has decreased sensation. Compared to the right. states over the years patient has had intermittent numbness of his bilateral upper extremities related to his C-spine history. -unable obtain MRI. See above -neurology consult (8) History of radiation therapy: Code(s): Z92.3 - Personal history of irradiation Status: Chronic Assessment and Plan: Patient completed radiation therapy for prostate cancer on 09/15/2024, receiving 45 treatments in total. states patient's mental and physical decline started after completing radiation therapy. Plan Patient with history of prostate cancer s/p radiation threapy and cervical fusion C3-C6 in 1982, GERD, fibromyalgia presents to the ED on 09/18/2025 with complaints of chest pain with left arm pain. patient 3 sets of cardiac enzymes are negative, there are no acute changes on his EKG, patient chest pain is resolved, patient was seen by the concrete panel installer and recommended to further evaluate patient needs cardiac ECHO, will follow up and further recommendation to follow. Diet: Heart healthy GI prophylaxis: NA DVT prophylaxis: Lovenox 40 mg daily lines/drains: PIV Fluids: NA Code status: Full DS: Summary Hospital Course Hospital Course: Patient with history of prostate cancer s/p radiation therapy and cervical fusion C3-C6 in 1982, GERD, fibromyalgia presents to the ED on 09/18/2025 with complaints of chest pain with left arm pain. patient 3 sets of cardiac enzymes are negative, there are no acute changes on his EKG, patient chest pain is resolved, patient was seen by the concrete panel installer and recommended to further evaluate patient needs cardiac ECHO, patient cardiac ECHO is normal, patient symptoms have resolved, clinically stable, will discharge home today. Time Spent with Patient Time attestation: Total time spent providing and/or coordinating discharge services: Exam Narrative: Patient is comfortable, NAD HEENT: eyes are clear and none icteric LUNGS:CTA HEART: RR S1S2 ABD: BS+, Soft and nontender Lower extremities: no edema SKIN: nonjaundiced Neuro: grossly intact. DS: Data Data Completed and Pending Labs on day of discharge: Labs from last 24 hours 09/20/25 03:19 WBC 4.8 RBC 4.33 L Hgb 12.9 L Hct 39.2 L MCV 90.5 MCH 29.8 MCHC 32.9 RDW 13.0 Plt Count 212 MPV 9.2 Immature Gran % (Auto) 0.2 Neut % (Auto) 61.1 Lymph % (Auto) 18.6 [facility] % (Auto) 14.3 H Eos % (Auto) 5.0 H Baso % (Auto) 0.8 Lymph # (Auto) 0.90 [facility] # (Auto) 0.7 H Eos # (Auto) 0.2 Baso # (Auto) 0.0 Abs Immat Gran (auto) 0.01 Absolute Neuts (auto) 3.0 Absolute Nucleated RBC 0.000 Nucleated RBC % 0.0 Sodium 136 L Potassium 4.2 Chloride 104 Carbon Dioxide 26 Anion Gap 6 BUN 20 Creatinine 0.92 Estim Creat Clear Calc 67 Estimated GFR > 60 Glucose 115 H Calcium 9.3 Magnesium 2.1 Total Bilirubin 0.5 AST 23 ALT 17 Alkaline Phosphatase 79 Total Protein 6.9 Albumin 4.1 Discharge Plan Discharge Attending physician on discharge: Carlos Kinsey Consulting providers: Jagdish Zuniga; Juwan Can; Wang Leal; Leann Fan; Alejandra Hale; Darrion Moreau; David Meadows; Jorge L Tong Discharging Clinician: Juanpablo Vick Patient Disposition: Home Activity: as tolerated Diet: heart healthy Discharge Instructions: patient to follow up with his primary care provider as soon as possible, patient is instructed if any symptoms worsen to go to nearest ER Patient Instructions: Chest Pain (DC), How to Stop Smoking (DC) Patient Language: Bulgarian Stand Alone Forms: General Discharge Information Follow-up/Referrals: Jagdish Zuinga MD [Physician, Interventional Cardiology] Arie Bell MD [Primary Care Provider, Family Practice] Juwan Can MD [Physician, Neurology] Discharge Medications: New miconazole nitrate 2 % Cream 1 applic topical Q12HR Qty: 30 0RF tramadol 50 mg Tablet 50 mg PO Q6H PRN (Reason: Pain Rated 4-6) Qty: 15 0RF Lubrifresh PM 83-15 % Ointment 1 applic EACH EYE HS Qty: 30 0RF Continued cephalexin 500 mg capsule 500 mg PO Q8H Qty: 60 1RF ibuprofen 800 mg tablet 800 mg PO TID PRN (Reason: pain) Rx Instructions: TAKE 1 TABLET BY MOUTH THREE TIMES A DAY NEEDED FOR PAIN diazepam 10 mg tablet 10 mg PO TID carisoprodol 350 mg tablet 350 mg PO TID PRN (Reason: muscle pain) Qty: 90 3RF acetaminophen-codeine 300-15 mg tablet 1 tablet PO Q4H PRN (Reason: pain) Qty: 90 3RF nystatin 100,000 unit/gram cream 1 applic topical TID Qty: 60 2RF Date of admission: 09/18/25 14:16 Primary Care Provider: Arie Bell Admitting Provider: Freddie Chandler Attending physician on admission: Juanpablo Vick Condition: Stable
[2025-09-20 15:09] LABS: Folate, Hemolysate 283.0 ng/mL (Not Estab.); Folate, RBC 680 ng/mL (>498); Hematocrit 41.6 % (37.5-51.0)
== END 2025-09-20 12:43 | disposition home or self-care (01) ==
LOC: ANHED 11:15 → ANHIMU 15:52
PROVIDERS: Emergency Medicine; Nurse Practitioner Adult Health; Admitting Provider Student in an Organized Health Care Education/Training Program; PCP Family Medicine; Visit Provider Family Medicine
DX: R07.9 Chest pain, unspecified (principal); K61.1 Rectal abscess; G89.29 Other chronic pain; B36.9 Superficial mycosis, unspecified; R31.0 Gross hematuria; R91.8 Other nonspecific abnormal finding of lung field; R47.9 Unspecified speech disturbances; R06.00 Dyspnea, unspecified; R41.82 Altered mental status, unspecified; R20.2 Paresthesia of skin; M79.7 Fibromyalgia; K21.9 Gastro-esophageal reflux disease without esophagitis; F11.90 Opioid use, unspecified, uncomplicated; F17.210 Nicotine dependence, cigarettes, uncomplicated; F12.90 Cannabis use, unspecified, uncomplicated; M19.90 Unspecified osteoarthritis, unspecified site; Z92.3 Personal history of irradiation; Z85.46 Personal history of malignant neoplasm of prostate; Z79.2 Long term (current) use of antibiotics; Z79.1 Long term (current) use of non-steroidal anti-inflammatories (NSAID); Z98.1 Arthrodesis status; Z90.49 Acquired absence of other specified parts of digestive tract; Z83.3 Family history of diabetes mellitus; Z82.49 Family history of ischemic heart disease and other diseases of the circulatory system; Z80.9 Family history of malignant neoplasm, unspecified; Z80.0 Family history of malignant neoplasm of digestive organs; Z80.8 Family history of malignant neoplasm of other organs or systems; Z82.62 Family history of osteoporosis; Z82.3 Family history of stroke; Z82.61 Family history of arthritis
CPT/HCPCS: 36415; 70450; 71046; 71275; 80053; 80061; 82607; 82746; 82747; 83690; 83735; 83880; 84484; 85025; 85380; 85610; 85730; 93005; 96372; 96375; 97161; 97165; 99285; A9270; C8929; G0378; J1650; Q9957; Q9967